=== PATIENT | female | born 1965 | race Caucasian/White ===

== ENCOUNTER 2021-10-11 07:43 | Day surgery (SDC) | payer BC ==
[2021-10-07 14:51] VITALS: BMI 51.2
--- NOTE | 2021-10-11 07:11 | P.GSHP ---
History of Present Illness H&P Date: 10/11/21 CHIEF COMPLAINT: GERD HISTORY OF PRESENT ILLNESS: The patient is a 56-year-old female who presents reports gastroesophageal reflux disease. Upper endoscopy was offered for further evaluation and management. PAST MEDICAL HISTORY: Please see list. PAST SURGICAL HISTORY: Please see list. MEDICATIONS: Please see list. ALLERGIES: Please see list. SOCIAL HISTORY: No illicit drug use FAMILY HISTORY: No reports of Crohn disease or ulcerative colitis. REVIEW OF ORGAN SYSTEMS: CONSTITUTIONAL: No reports of fevers or chills. GI: Denies any blood in stools or constipation. PHYSICAL EXAM: VITAL SIGNS: Stable GENERAL: Well-developed and pleasant in no acute distress. HEENT: No scleral icterus. Extraocular movements grossly intact. Moist buccal mucosa. NECK: Supple without lymphadenopathy. CHEST: Unlabored respirations. Equal bilateral excursions. CARDIOVASCULAR: Regular rate and rhythm. Distal 2+ pulses. ABDOMEN: Soft, nondistended. MUSCULOSKELETAL: No clubbing, cyanosis, or edema. ASSESSMENT: 1. Gastroesophageal reflux disease PLAN: 1. Recommend proceeding with an upper endoscopy Past Medical History Past Medical History: Atrial Fibrillation, Diabetes Mellitus, Osteoarthritis (OA) Additional Past Medical History / Comment(s): Oct 2020 - blood clot in heart. History of Any Multi-Drug Resistant Organisms: None Reported Past Surgical History: Appendectomy, Breast Surgery, Cholecystectomy, Heart Catheterization, Hysterectomy Additional Past Surgical History / Comment(s): lump removed from right breast. Past Anesthesia/Blood Transfusion Reactions: No Reported Reaction Additional Past Anesthesia/Blood Transfusion Reaction / Comment(s): ponv x1 in her 20's Past Psychological History: No Psychological Hx Reported Smoking Status: Former smoker Past Alcohol Use History: None Reported Additional Past Alcohol Use History / Comment(s): quit smoking 2018. , hx of 1 11/07 ppd, started smoking age 17. Past Drug Use History: None Reported Medications and Allergies Home Medications Medication Instructions Recorded Confirmed Type Insulin Aspart [NovoLOG Flexpen] 0 units SQ AC-TID PRN 08/18/21 10/07/21 History Insulin Glargine,Hum.rec.anlog 25 unit SQ QAM 08/18/21 10/07/21 History [Lantus Solostar Pen] Insulin Glargine,Hum.rec.anlog 50 unit SQ HS 08/18/21 10/07/21 History [Lantus Solostar Pen] Meloxicam [Mobic] 15 mg PO DAILY PRN 08/18/21 10/07/21 History Propranolol HCl [Inderal Xl] 80 mg PO HS 08/18/21 10/07/21 History Angeli 1 tab PO DAILY PRN 10/07/21 History Krill Oil 1 tab PO DAILY 10/07/21 History Vitamin C 1 tab PO DAILY 10/07/21 10/07/21 History Vitamin D 3 1 dose PO DIRECTED 10/07/21 History Zinc 1 tab PO DAILY 10/07/21 History Allergies Allergy/AdvReac Type Severity Reaction Status Date / Time codeine Allergy Rash/Hives Verified 10/07/21 14:26 Penicillins Allergy Rash/Hives Verified 10/07/21 14:26 ekg stickers Allergy Unknown red rash Uncoded 10/07/21 15:58
[~2021-10-11 07:43] MED LIST: LACTATED RINGERS 1,000 ML IV SCH
[2021-10-11 08:21] LABS: Glucose,Whole Blood 209 mg/dL (75-99)
[2021-10-11] MEDS ORDERED: LACTATED RINGERS 1,000 ML IV ONE (08:22)
[2021-10-11 08:24] VITALS: TEMP 97.8
[2021-10-11] MEDS ORDERED: .fentaNYL (PF) 50 MCG/ML 2 ML AMP ONE (08:33)
[2021-10-11] MEDS ORDERED: PROPOFOL 10 MG/ML 20 ML VIAL IV ONE (08:33)
[2021-10-11] MEDS ORDERED: LIDOCAINE 1% INJ 10MG/ML (20 ML MDV) ONE (08:33)
--- NOTE | 2021-10-11 08:58 | P.PCN ---
Date of Procedure: 10/11/21 Description of Procedure: PREOPERATIVE DIAGNOSIS: Gastroesophageal reflux disease. Morbid obesity. POSTOPERATIVE DIAGNOSIS: Morbid obesity. Gastritis. Gastroesophageal reflux disease with esophageal ulcer OPERATION: Esophagogastroduodenoscopy with biopsies along antrum and duodenum. SURGEON: Louisa Irwin MD ANESTHESIA: MAC. INDICATIONS: The patient is a 56-year-old female who presents with a history of reflux disease. Benefits and risks of the procedure were described. Informed consent was obtained. DESCRIPTION: The patient was brought into the endoscopy suite and laid in the left lateral decubitus position. An Olympus gastroscope was passed along the posterior oropharynx down to the distal esophagus where the squamocolumnar junction was encountered at 36 cm from the incisors. The stomach was entered and no bile reflux was found. Additional findings are listed below. Biopsies with cold forceps were obtained of the antrum. The first through third portion of the duodenum was examined with cold forceps biopsies obtained. Retroflexion of the scope confirmed Hill grade 2 lower esophageal valve. The squamocolumnar junction demonstrated LA grade A erosive esophagitis and esophageal ulcer. The stomach was desufflated. The patient tolerated the procedure well. FINDINGS: Squamocolumnar junction 36 cm from the incisors. Diaphragmatic hiatus at 36 cm. Hill grade 2 lower esophageal valve. LA grade B erosive esophagitis. Cold forceps biopsies of duodenum. Chronic gastritis with recent bleed RECOMMENDATIONS: Upper endoscopy as needed. Plan - Discharge Summary New Discharge Prescriptions: Continue Insulin Glargine,Hum.rec.anlog [Lantus Solostar Pen] 50 unit SQ HS Insulin Glargine,Hum.rec.anlog [Lantus Solostar Pen] 25 unit SQ QAM Meloxicam [Mobic] 15 mg PO DAILY PRN PRN Reason: Pain Insulin Aspart [NovoLOG Flexpen] 0 units SQ AC-TID PRN PRN Reason: CBG ABOVE 150 Zinc 1 tab PO DAILY Vitamin D 3 1 dose PO DIRECTED Propranolol HCl [Inderal Xl] 80 mg PO HS Vitamin C 1 tab PO DAILY Krill Oil 1 tab PO DAILY Angeli 1 tab PO DAILY PRN PRN Reason: Allergy Symptoms Discharge Medication List Insulin Aspart [NovoLOG Flexpen] 0 units SQ AC-TID PRN 08/18/21 [History] Insulin Glargine,Hum.rec.anlog [Lantus Solostar Pen] 25 unit SQ QAM 08/18/21 [History] Insulin Glargine,Hum.rec.anlog [Lantus Solostar Pen] 50 unit SQ HS 08/18/21 [History] Meloxicam [Mobic] 15 mg PO DAILY PRN 08/18/21 [History] Propranolol HCl [Inderal Xl] 80 mg PO HS 08/18/21 [History] Angeli 1 tab PO DAILY PRN 10/07/21 [History] Krill Oil 1 tab PO DAILY 10/07/21 [History] Vitamin C 1 tab PO DAILY 10/07/21 [History] Vitamin D 3 1 dose PO DIRECTED 10/07/21 [History] Zinc 1 tab PO DAILY 10/07/21 [History] [facility] [facility] [place] [place] [facility] [place] [facility] Patient Instructions/Handouts: Gastroesophageal Reflux Disease (DC) Discharge Disposition: HOME SELF-CARE
[2021-10-11 09:11] VITALS: BP 128/81; PULSE 71; RESP 17
== END 2021-10-11 10:03 | disposition home or self-care (01) ==
LOC: ORWHC2ENDO 07:43
PROVIDERS: ATTEND Surgery Plastic and Reconstructive Surgery
DX: K21.9 Gastro-esophageal reflux disease without esophagitis (principal); E66.01 Morbid (severe) obesity due to excess calories; K29.70 Gastritis, unspecified, without bleeding; K22.10 Ulcer of esophagus without bleeding; I48.91 Unspecified atrial fibrillation; E11.9 Type 2 diabetes mellitus without complications; M19.90 Unspecified osteoarthritis, unspecified site
CPT/HCPCS: 43239; J2001; J3010; J2704; 88305; 88342

== ENCOUNTER → 2021-10-27 | Outpatient (CLI) | payer BC ==
[2021-10-27 15:11] VITALS: BP 146/79; PULSE 80; RESP 16; TEMP 97.6; BMI 50.9
--- NOTE | 2021-10-27 15:47 | P.BASOAP ---
Subjective Progress Note Date: 10/27/21 She has gained weight with BMI over 50. She wants the sleeve gastrectomy. Needs full labs. EKG reviewed. EGD reviewed. Objective - Vital Signs Vital signs: Vital Signs Temp 97.6 F 10/27/21 15:09 Pulse 80 10/27/21 15:09 Resp 16 10/27/21 15:09 BP 146/79 10/27/21 15:09 Pulse Ox Intake & Output 10/26/21 10/27/21 10/27/21 18:59 06:59 18:59 Weight 124.284 kg Assessment/Plan Plan: Date: 10/27/21 Initial Weight: 118.841 kg Initial BMI: 48.6 Current Weight: 124.284 kg Current BMI: 50.9 Type of Surgery: Total Volume in Band: Previous Volume: Volume Removed: Volume Added: Band Size:
[2021-10-27 16:59] LABS: HCT 40.2 % (34.0-46.0); HGB 13.2 gm/dL (11.4-16.0); MCH 29.9 pg (25.0-35.0); MCHC 32.9 g/dL (31.0-37.0); MCV 90.9 fL (80.0-100.0); Mean Platelet Volume 7.5; Platelet Count 311 k/uL (150-450); RBC 4.42 m/uL (3.80-5.40); RDW 13.8 % (11.5-15.5); WBC 7.1 k/uL (3.8-10.6)
[2021-10-27 17:11] LABS: INR 0.9 (<1.2); Partial Thromboplastin Time 22.9 sec (22.0-30.0); Prothrombin Time 9.6 sec (9.0-12.0)
[2021-10-28 01:37] LABS: ALT 19 U/L (8-44); AST 20 U/L (13-35); African American GFR (CKD) 83.3 (60.0-200.0); Albumin/Globulin Ratio 1.68 (1.60-3.17); Alkaline Phosphatase 86 U/L (41-126); BUN/Creat Ratio 13.65 Ratio (12.00-20.00); Blood Urea Nitrogen 12.3 mg/dL (9.0-27.0); Chloride 106 mmol/L (96-109); Globulin 2.4 g/dL (1.6-3.3); Glucose 151 mg/dL (70-110); Magnesium 1.8 mg/dL (1.5-2.4); Non-African American GFR(CKD) 71.9 (60.0-200.0); Phosphorus 3.3 mg/dL (2.4-5.1); Potassium 4.5 mmol/L (3.5-5.5); Prealbumin 20.9 mg/dL (18.0-42.0); Sodium 141 mmol/L (135-145); Total Bilirubin <0.20 mg/dL (0.30-1.20); Total Protein 6.3 g/dL (6.2-8.2)
[2021-10-28 01:38] LABS: % Iron Saturation 18.65 (12.00-45.00); Iron 62 ug/dL (50-170); Total Iron Binding Capacity 335 ug/dL (228-460)
[2021-10-28 01:56] LABS: Chol/HDL Ratio 4.75 Ratio
[2021-10-28 12:57] LABS: Zinc, Serum 70 ug/dL (60-130)
[2021-10-30 02:40] LABS: Vitamin A 38 ug/dL (38-106)
[2021-10-30 02:47] LABS: Vit B1(Thiamine) 69 ug/L (38-122)
== END | disposition home or self-care (01) ==
LOC: BARWHC3 14:08
PROVIDERS: ATTEND Surgery Plastic and Reconstructive Surgery
DX: E89.1 Postprocedural hypoinsulinemia (principal); D50.8 Other iron deficiency anemias; E44.0 Moderate protein-calorie malnutrition; E55.9 Vitamin D deficiency, unspecified; K74.1 Hepatic sclerosis; N19 Unspecified kidney failure; K50.90 Crohn's disease, unspecified, without complications
CPT/HCPCS: 80053; 80061; 82306; 82525; 82607; 82728; 82746; 83036; 83540; 83550; 83721; 83735; 83970; 84100; 84134; 84255; 84425; 84443; 84590; 84630; 85027; 85610; 85730; 99211

== ENCOUNTER → 2021-11-08 | Outpatient (CLI) | payer BC ==
[2021-11-08 13:54] VITALS: BMI 51.2
== END ==
LOC: BARWHC3 08:33
PROVIDERS: ATTEND Surgery Plastic and Reconstructive Surgery
DX: E66.01 Morbid (severe) obesity due to excess calories (principal); Z71.3 Dietary counseling and surveillance; Z68.43 Body mass index [BMI] 50.0-59.9, adult; Z88.5 Allergy status to narcotic agent; Z88.0 Allergy status to penicillin; Z91.048 Other nonmedicinal substance allergy status
CPT/HCPCS: 97804

== ENCOUNTER → 2021-12-29 | Outpatient (CLI) | payer BC ==
[2021-12-29 14:52] VITALS: BP 127/94; PULSE 74; RESP 16; TEMP 98.3; BMI 49.4
--- NOTE | 2021-12-29 15:32 | P.BASOAP ---
Subjective Progress Note Date: 12/29/21 DATE OF SERVICE: 12/29/2021 CHIEF COMPLAINT: Morbid obesity HISTORY OF PRESENT ILLNESS: Selma Castro is a 56-year-old female who comes with lifelong morbid obesity. She diabetes type II and osteoarthritis. She has completed medical supervised weight loss, psychology assessment. She is looking into the sleeve gastrectomy. At height of 5 feet 1.5 inches, her ideal body weight is 131 pounds. Her initial weight was 261 pounds, BMI 48.6. She comes in 265 pounds from 273 pounds, 2 months ago. She has lost 8 pounds in 2 months. Her body mass index is 49.4. She is 134 pounds overweight. PAST MEDICAL HISTORY: 1. Morbid obesity due to excess calories 2. Body mass index of 48.7 3. Diabetes type 2, insulin dependent 4. Hypertension 5. Atrial fibrillation 6. Osteoarthritis lower back 7. Osteoarthritis knees, bilateral 8. Osteoarthritis ankle, left 9. Deep venous thrombosis PAST SURGICAL HISTORY: 1. Cholecystectomy 2. Appendectomy 3. Cardiac catheterization 4. Hysterectomy 5. Right lumpectomy HOME MEDICATIONS: Home Medications Medication Instructions Recorded Confirmed Insulin Aspart [NovoLOG Flexpen] 0 units SQ AC-TID PRN 08/18/21 12/30/21 Insulin Glargine,Hum.rec.anlog 25 unit SQ QAM 08/18/21 12/30/21 [Lantus Solostar Pen] Insulin Glargine,Hum.rec.anlog 50 unit SQ HS 08/18/21 12/30/21 [Lantus Solostar Pen] Meloxicam [Mobic] 15 mg PO DAILY PRN 08/18/21 12/30/21 Propranolol HCl [Inderal Xl] 80 mg PO HS 08/18/21 12/30/21 Angeli 1 tab PO DAILY PRN 10/07/21 12/30/21 Krill Oil 1 tab PO DAILY 10/07/21 12/30/21 Vitamin C 1 tab PO DAILY 10/07/21 12/30/21 Vitamin D 3 1 dose PO DIRECTED 10/07/21 12/30/21 Zinc 1 tab PO DAILY 10/07/21 12/30/21 ALLERGIES: Allergies Allergy/AdvReac Type Severity Reaction Status Date / Time codeine Allergy Rash/Hives Verified 10/27/21 16:37 Penicillins Allergy Rash/Hives Verified 10/27/21 16:37 ekg stickers Allergy Unknown red rash Uncoded 10/27/21 16:37 SOCIAL HISTORY: Past tobacco use. FAMILY HISTORY: No family history of ulcerative colitis disease or Crohn's disease. Family history of morbid obesity. No lupus in the family. No reports of stomach or esophageal cancer. REVIEW OF ORGAN SYSTEMS: CONSTITUTIONAL: At height of 5 feet 1.5 inches, her ideal body weight is 131 pounds. She comes in 261 pounds. Her body mass index is 48.7. She is 130 pounds overweight. HEENT: Denies any active troubles with vision or hearing. ENDOCRINE: Has diabetes type II, insulin dependent. No hypothyroidism. CARDIOVASCULAR: Past reports of palpitations or heart attacks or chest pain. Has hypertensive heart disease. RESPIRATORY: Denies asthma. Denies chronic obstructive pulmonary disease. GASTROINTESTINAL: Denies any bright red blood per rectum. No diarrhea. No constipation. Has gastroesophageal reflux disease. GENITOURINARY: Denies bladder urgency. No recent blood in urine MUSCULOSKELETAL: Has lower back pain and joint pain. Has osteoarthritis of the knees. H NEURO: No headaches. No seizure disorders. Has neuropathy. PSYCH: No depression. No suicidal ideation. RHEUMATOLOGIC: No lupus. No rheumatoid arthritis. HEMATOLOGIC: Denies any abnormal bleeding or bruising. Past history of blood clot in the heart. SKIN: No rash. No skin cancer. PHYSICAL EXAM: VITAL SIGNS: Height 5 foot 1.5 inches, weight 273 pounds. BMI 50.9 Vital Signs Temp 98.3 F 12/29/21 14:50 Pulse 74 12/29/21 14:50 Resp 16 12/29/21 14:50 BP 127/94 12/29/21 14:50 Pulse Ox GENERAL: Well-developed in no acute distress. HEENT: No scleral icterus. Extraocular movements grossly intact. Hears conversational speech. No nasal drainage. NECK: Supple without lymphadenopathy. CHEST: Nonlabored respirations with equal bilateral excursions. CARDIOVASCULAR: Irregular rate and rhythm. Distal 2+ pulses. ABDOMEN: Obese, soft, nontender, nondistended. MUSCULOSKELETAL: No clubbing, cyanosis. NEURO: No focal or lateralizing signs. Cranial nerves 2 through 12 grossly within normal limits. PSYCH: Appropriate affect. Alert and oriented to person, place and time. SKIN: Good skin turgor. Well perfused. EKG: Reviewed. Sinus bradycardia with sinus arrhythmia. LABS: Hgb A1c 7.2% elevated. Triglycerides elevated 414. Vitamin D low. EGD FINDINGS: Squamocolumnar junction 36 cm from the incisors. Diaphragmatic hiatus at 36 cm. Hill grade 2 lower esophageal valve. LA grade B erosive esophagitis. Cold forceps biopsies of duodenum. Chronic gastritis with recent bleed Final Pathologic Diagnosis A. DUODENUM, BIOPSY: Mild active duodenitis with submucosal Leonidas gland hyperplasia suggestive of peptic disease. B. GASTRIC ANTRUM, BIOPSY: Chronic gastritis with mild activity. Helicobacter pylori immunoperoxidase stain is negative for H. pylori organisms (control appropriate). ASSESSMENT: 1. Morbid obesity due to excess calories 2. Body mass index 50.9 to 49.4 3. Diabetes type 2, insulin dependent 4. Hypertension 5. Atrial fibrillation 6. Osteoarthritis lower back 7. Osteoarthritis knees, bilateral 8. Osteoarthritis ankle, left 9. Hypertriglyceridemia 10. Hypercholesterolemia 11. Vitamin D deficiency 12. Duodenitis PLAN: 1. Bariatric options between a sleeve, band and a Ludwig-en-Y gastric bypass were reviewed in detail. The patient elected for a sleeve gastrectomy. Robotic assisted approach described. 2. The [place] [facility] Data was also reviewed with benefits and risks as described. 3. An 8 page second-generation bariatric consent form was reviewed in detail including potential of bleeding, infection, leaks, adequate weight loss, nutri tional deficiencies which the patient demonstrated understanding of the risks. 4. A 2 week high-protein low caloric 800 kcal diet described to address hepatomegaly. 5. Preoperative labs including complete metabolic panel and CBC with type and screen recommended. 6. DVT prophylaxis per [place] [facility]. 7. Antibiotic prophylaxis. 8. Inpatient hospitalization anticipated for more than 2 nights. 9. All questions and concerns were addressed with the patient. 10. She is at elevated risk for perioperative complications with multiple co- morbid conditions. 11. Overall, patient has expressed understanding of bariatric care including postoperative diet and commitment of lifestyle. Patient should benefit from surgical intervention for correction of her morbid obesity. 12. NSQIP surgery risk calculator reviewed. 13. Importance of a protein diet and goal of at least 15 pound weight loss described. 14. Preoperative including perioperative recovery described. 15. IV fluids including oral hydration addressed. 16. Vitamin D deficiency identified and supplemented. Objective - Vital Signs Vital signs: Vital Signs Temp 98.3 F 12/29/21 14:50 Pulse 74 12/29/21 14:50 Resp 16 12/29/21 14:50 BP 127/94 12/29/21 14:50 Pulse Ox Intake & Output 12/28/21 12/29/21 12/29/21 18:59 06:59 18:59 Weight 120.656 kg Assessment/Plan Plan: Date: 12/29/21 Initial Weight: 118.841 kg Initial BMI: 48.6 Current Weight: 120.656 kg Current BMI: 49.4 Type of Surgery: Total Volume in Band: Previous Volume: Volume Removed: Volume Added: Band Size:
== END ==
LOC: BARWHC3 13:54
PROVIDERS: ATTEND Surgery Plastic and Reconstructive Surgery
DX: E66.01 Morbid (severe) obesity due to excess calories (principal); Z68.42 Body mass index [BMI] 45.0-49.9, adult; E11.9 Type 2 diabetes mellitus without complications; I10 Essential (primary) hypertension; I48.91 Unspecified atrial fibrillation; M47.9 Spondylosis, unspecified; M17.0 Bilateral primary osteoarthritis of knee; E78.1 Pure hyperglyceridemia; E78.00 Pure hypercholesterolemia, unspecified; E55.9 Vitamin D deficiency, unspecified; K29.80 Duodenitis without bleeding; Z79.4 Long term (current) use of insulin; Z88.5 Allergy status to narcotic agent; Z88.0 Allergy status to penicillin; Z91.048 Other nonmedicinal substance allergy status; Z87.891 Personal history of nicotine dependence
CPT/HCPCS: 99211

== ENCOUNTER 2022-01-17 08:18 | Observation (INO) | payer BC ==
[~2022-01-17 08:18] MED LIST changes: +ACETAMINOPHEN TAB 500 MG TAB PO PRN; +CHLORHEXIDINE GLUCONATE 15 ML CUP MUCOUS MEM PRN; +DEXAMETHASONE SOD PHOSPHATE 4 MG/ML 1 ML VIAL IV ONE; +ENOXAPARIN 40 MG/0.4 ML SYRINGE SQ PRN; +GABAPENTIN 300 MG CAP PO PRN; -LACTATED RINGERS 1,000 ML IV SCH; +LIDOCAINE 1% (10MG/ML) FOR IV START INTRADERMA PRN; +ONDANSETRON 4 MG/2 ML VIAL IVP ONE; +PANTOPRAZOLE 40 MG/10 ML VIAL IVP PRN; +SCOPOLAMINE 1.5MG/72HR PATCH TRANSDERM ONE; +SCOPOLAMINE 1.5MG/72HR PATCH TRANSDERM PRN; +ceFAZolin 3 GM in SODIUM CHLORIDE 0.9% 100 ML IVPB PRN
--- NOTE | 2022-01-17 08:50 | P.GSHP ---
History of Present Illness H&P Date: 01/17/22 CHIEF COMPLAINT: Morbid obesity HISTORY OF PRESENT ILLNESS: Selma Castro is a 56-year-old female who comes with lifelong morbid obesity. She has insulin resistance. She has lower back pain, right greater than left, knee pain, ankle including of the left. She is completely medically supervised weight loss. She presents for sleeve gastrectomy. At height of 5 feet 1.5 inches, her ideal body weight is 131 pounds. She comes in 270 pounds. Her body mass index is 50.4. She is 130 pounds overweight. PAST MEDICAL HISTORY: 1. Morbid obesity due to excess calories 2. Body mass index of 48.7 3. Diabetes type 2, insulin dependent 4. Hypertension 5. Atrial fibrillation 6. Osteoarthritis lower back 7. Osteoarthritis knees, bilateral 8. Osteoarthritis ankle, left PAST SURGICAL HISTORY: 1. Cholecystectomy 2. Appendectomy 3. Cardiac catheterization 4. Hysterectomy 5. Right lumpectomy HOME MEDICATIONS: Home Medications Medication Instructions Recorded Confirmed Insulin Aspart [NovoLOG Flexpen] 0 units SQ AC-TID PRN 08/18/21 12/30/21 Insulin Glargine,Hum.rec.anlog 25 unit SQ QAM 08/18/21 12/30/21 [Lantus Solostar Pen] Insulin Glargine,Hum.rec.anlog 50 unit SQ HS 08/18/21 12/30/21 [Lantus Solostar Pen] Meloxicam [Mobic] 15 mg PO DAILY PRN 08/18/21 12/30/21 Propranolol HCl [Inderal Xl] 80 mg PO HS 08/18/21 12/30/21 Angeli 1 tab PO DAILY PRN 10/07/21 12/30/21 Krill Oil 1 tab PO DAILY 10/07/21 12/30/21 Vitamin C 1 tab PO DAILY 10/07/21 12/30/21 Vitamin D 3 1 dose PO DIRECTED 10/07/21 12/30/21 Zinc 1 tab PO DAILY 10/07/21 12/30/21 ALLERGIES: Allergies Allergy/AdvReac Type Severity Reaction Status Date / Time codeine Allergy Rash/Hives Verified 10/27/21 16:37 Penicillins Allergy Rash/Hives Verified 10/27/21 16:37 ekg stickers Allergy Unknown red rash Uncoded 10/27/21 16:37 SOCIAL HISTORY: Past tobacco use. FAMILY HISTORY: No family history of ulcerative colitis disease or Crohn's disease. Family history of morbid obesity. No lupus in the family. No reports of stomach or esophageal cancer. REVIEW OF ORGAN SYSTEMS: CONSTITUTIONAL: At height of 5 feet 1.5 inches, her ideal body weight is 131 pounds. She comes in 261 pounds. Her body mass index is 48.7. She is 130 pounds overweight. HEENT: Denies any active troubles with vision or hearing. ENDOCRINE: Has diabetes type II, insulin dependent. No hypothyroidism. CARDIOVASCULAR: Past reports of palpitations or heart attacks or chest pain. Has hypertensive heart disease. RESPIRATORY: Denies asthma. Denies chronic obstructive pulmonary disease. GASTROINTESTINAL: Denies any bright red blood per rectum. No diarrhea. No constipation. Has gastroesophageal reflux disease. GENITOURINARY: Denies bladder urgency. No recent blood in urine MUSCULOSKELETAL: Has lower back pain and joint pain. Has osteoarthritis of the knees. H NEURO: No headaches. No seizure disorders. Has neuropathy. PSYCH: No depression. No suicidal ideation. RHEUMATOLOGIC: No lupus. No rheumatoid arthritis. HEMATOLOGIC: Denies any abnormal bleeding or bruising. Past history of blood clot in the heart. SKIN: No rash. No skin cancer. PHYSICAL EXAM: VITAL SIGNS: Height 5 foot 1.5 inches, weight 270 pounds. BMI 50.4 GENERAL: Well-developed in no acute distress. HEENT: No scleral icterus. Extraocular movements grossly intact. Hears conversational speech. No nasal drainage. NECK: Supple without lymphadenopathy. CHEST: Nonlabored respirations with equal bilateral excursions. CARDIOVASCULAR: Irregular rate and rhythm. Distal 2+ pulses. ABDOMEN: Obese, soft, nontender, nondistended. MUSCULOSKELETAL: No clubbing, cyanosis. NEURO: No focal or lateralizing signs. Cranial nerves 2 through 12 grossly within normal limits. PSYCH: Appropriate affect. Alert and oriented to person, place and time. SKIN: Good skin turgor. Well perfused. ASSESSMENT: 1. Morbid obesity due to excess calories 2. Body mass index of 38.0, initial 3. Osteoarthritis of the knees. 4. Osteoarthritis of the lower back. 5. Hypertensive heart disease. 6. Gastroesophageal reflux disease 7. Hyperlipidemia 8. Obstructive sleep apnea 9. Diabetes type 2, insulin dependent 10. Chronic obstructive pulmonary disease 11. Glaucoma 12. Neuropathy 13. Asthma 14. Atrial fibrillation PLAN: 1. Bariatric options between a sleeve, band and a Ludwig-en-Y gastric bypass were reviewed in detail. The patient elected for a sleeve gastrectomy. Robotic assisted approach described. 2. The [place] [facility] Data was also reviewed with benefits and risks as described. 3. An 8 page second-generation bariatric consent form was reviewed in detail including potential of bleeding, infection, leaks, adequate weight loss, nutritional deficiencies which the patient demonstrated understanding of the risks. 4. A 2 week high-protein low caloric 800 kcal diet described to address hepatomegaly. 5. Preoperative labs including complete metabolic panel and CBC with type and screen recommended. 6. DVT prophylaxis per [place] [facility]. 7. Antibiotic prophylaxis. 8. Inpatient hospitalization anticipated for more than 2 nights. 9. All questions and concerns were addressed with the patient. 10. She is at elevated risk for perioperative complications with BMI of 50 Past Medical History Past Medical History: Atrial Fibrillation, Diabetes Mellitus, Osteoarthritis (OA) Additional Past Medical History / Comment(s): Oct 2020 - blood clot in heart., past hx. a-fib several yrs. ago-takes propranolol for heart rate & rhythm, recent stress test normal @[facility] card[facility]in [place] per pt History of Any Multi-Drug Resistant Organisms: None Reported Past Surgical History: Appendectomy, Breast Surgery, Cholecystectomy, Heart Catheterization, Hysterectomy Additional Past Surgical History / Comment(s): lump removed from right breast. Past Anesthesia/Blood Transfusion Reactions: No Reported Reaction Additional Past Anesthesia/Blood Transfusion Reaction / Comment(s): ponv x1 in her 20's Smoking Status: Former smoker Medications and Allergies Home Medications Medication Instructions Recorded Confirmed Type Insulin Aspart [NovoLOG Flexpen] See Protocol SQ AC-TID PRN 08/18/21 01/17/22 History Insulin Glargine,Hum.rec.anlog 25 unit SQ HS 08/18/21 01/17/22 History [Lantus Solostar Pen] Meloxicam [Mobic] 15 mg PO DAILY PRN 08/18/21 01/13/22 History Propranolol HCl [Inderal Xl] 80 mg PO HS 08/18/21 01/17/22 History Allergies Allergy/AdvReac Type Severity Reaction Status Date / Time codeine Allergy Rash/Hives Verified 01/17/22 08:41 Penicillins Allergy Rash/Hives Verified 01/17/22 08:41 ekg stickers Allergy Unknown red rash Uncoded 01/17/22 08:41
[2022-01-17] MEDS: LACTATED RINGERS 1,000 ML IV SCH (09:10)
[2022-01-17 09:15] LABS: Glucose,Whole Blood 155 mg/dL (75-99)
[2022-01-17] MEDS ORDERED: MELOXICAM 7.5 MG TAB PO ONE (09:17)
[2022-01-17] MEDS ORDERED: diphenhydrAMINE 50 MG/ML 1 ML VIAL ONE (09:24)
[2022-01-17] MEDS ORDERED: LIDOCAINE 1% INJ 10MG/ML (20 ML MDV) ONE (09:24)
[2022-01-17] MEDS ORDERED: ePHEDrine 50 MG/ML 1 ML VIAL ONE (09:24)
[2022-01-17] MEDS ORDERED: PROPOFOL 10 MG/ML 20 ML VIAL IV ONE (09:24)
[2022-01-17] MEDS ORDERED: NEOSTIGMINE 1 MG/ML 10 ML VIAL ONE (09:24)
[2022-01-17] MEDS ORDERED: DEXAMETHASONE SOD PHOSPHATE 10 MG/ML 1 ML VIAL ONE (09:24)
[2022-01-17] MEDS ORDERED: MIDAZOLAM 2 MG/2 ML VIAL ONE (09:24)
[2022-01-17] MEDS ORDERED: SUCCINYLCHOLINE CHLORIDE VIAL 200 MG/10 ML VIAL IV ONE (09:24)
[2022-01-17] MEDS ORDERED: fentaNYL (PF) 50 MCG/ML 2 ML AMP ONE (09:24)
[2022-01-17] MEDS ORDERED: GLYCOPYRROLATE 0.2 MG/ML 2 ML VIAL ONE (09:24)
[2022-01-17] MEDS ORDERED: ROCURONIUM 10 MG/ML (5 ML VIAL) IV ONE (09:24)
[2022-01-17 09:39] LABS: ALT 29 U/L (4-34); AST 29 U/L (14-36); African American GFR (CKD) >90 (>60 ml/min/1.73 sqM); Albumin 4.1 g/dL (3.5-5.0); Alkaline Phosphatase 79 U/L (38-126); Anion Gap 8 mmol/L; Blood Urea Nitrogen 11 mg/dL (7-17); Carbon Dioxide 21 mmol/L (22-30); Chloride 109 mmol/L (98-107); Glucose 166 mg/dL (74-99); Non-African American GFR(CKD) >90 (>60 ml/min/1.73 sqM); Potassium 4.4 mmol/L (3.5-5.1); Sodium 138 mmol/L (137-145); Total Bilirubin 0.8 mg/dL (0.2-1.3); Total Protein 7.2 g/dL (6.3-8.2)
[2022-01-17] MEDS ORDERED: BUPIVACAIN-EPI 0.25%-1:200,000 30 ML VIAL SQ ONE (10:14)
[2022-01-17] MEDS ORDERED: LACTATED RINGERS 1,000 ML IV ONE (11:02)
[2022-01-17] MEDS ORDERED: NALOXONE 0.4 MG/ML 1 ML VIAL IV PRN (11:24)
--- NOTE | 2022-01-17 11:39 | P.OP ---
Date of Procedure: 01/17/22 Description of Procedure: SURGEON: KERRIE SHELDON MD PREOPERATIVE DIAGNOSES: 1. Morbid obesity due to excess calories 2. Body mass index of 50.2 3. Diabetes type 2, insulin dependent 4. Hypertension 5. Atrial fibrillation 6. Osteoarthritis lower back 7. Osteoarthritis knees, bilateral 8. Osteoarthritis ankle, left POSTOPERATIVE DIAGNOSES: 1. Morbid obesity due to excess calories 2. Body mass index of 50.2 3. Diabetes type 2, insulin dependent 4. Hypertension 5. Atrial fibrillation 6. Osteoarthritis lower back 7. Osteoarthritis knees, bilateral 8. Osteoarthritis ankle, left 9. Fatty liver disease with hepatomegaly OPERATION: 1. Robotic assisted daVinci Xi laparoscopic sleeve gastrectomy with 40-Cay[place] Islander bougie, multiport. 2. Intraoperative esophagogastroduodenoscopy. ANESTHESIA: Gen. local anesthetic ESTIMATED BLOOD LOSS: 5 mL SPECIMENS REMOVED: Sleeve gastrectomy COMPLICATIONS: None. FINDINGS: 1. Negative intraoperative esophagogastrojejunoscopy leak test. 2. No large hiatus hernia. 3. Total of 6 staplers used including 3 - 60 mm blue robot ely and 3 - 60 mm green robot loads used to create the gastric sleeve. 4. Sleeve gastrectomy, 27 x 3 cm INDICATIONS: Selma Castro is a 56-year-old female who comes with lifelong morbid obesity. She has insulin resistance. She has lower back pain, right greater than left, knee pain, ankle including of the left. She is completely medically supervised weight loss. She presents for sleeve gastrectomy. At height of 5 feet 1.5 inches, her ideal body weight is 131 pounds. She comes in 270 pounds. Her body mass index is 50.4. She is 130 pounds overweight. All surgical options for morbid obesity had been described using the [place] bariatric surgery collaborative comorbidity resolution including complication risk score. A second-generation bariatric consent form was described in detail including the possibility of protein malnutrition, leaks, gastric stricture, venous thrombosis, gastroesophageal reflux disease, need for further surgery for which she demonstrated understanding. Benefits and risks of the procedure were described at length. Informed consent was obtained. DESCRIPTION: The patient was brought into the operating room theater. Preoperatively she had received Lovenox subcutaneously for DVT prophylaxis. Additionally she had Peridex oral solution as an oral decontaminant. After general induction, the abdomen was prepped and draped in standard sterile fashion. An Ioban draping was placed along the abdomen. A robotic da Martin Xi system was prepped and primed. At 15 cm from the xiphoid, proposed port sites were marked with indelible marker along the anterior axillary line bilaterally, mid axillary line bilaterally with each ports were marked 10 to 15 cm from each other. The robotic stapler port was marked for the right midclavicular line. A 5 mm 0 degrees laparoscopic trocar entry was performed along the left upper quadrant. The abdomen was insufflated to 15 mmHg pressure was tolerated well. Diagnostic laparoscopy demonstrated no injury to bowel, viscera, or mesentery. No evidence of large hiatus hernia was identified. The liver was large with hepatomegaly including moderate severe fatty liver disease despite her 2 week low carbohydrate high protein diet. A 8 mm port was placed along the left upper abdominal wall after exchanging the 5 mm port. A separate 8 mm port was placed along the left lateral abdominal wall. Please note that the ports were placed at least 20 cm away from the target anatomy. Care was taken to check each robotic arms were safely away from collision with the bed or the patient. At the epigastrium, a medium sized Kristine liver retractor was placed under direct visualization with the [employer] Partner placed under the right shoulder of the patient. Next, 12-mm robot stapler port was placed along the right upper quadrant. The camera 8-mm port was maintained along the epigastrium. The patient was repositioned in reverse Trendelenburg position at 21-degrees after lowering the bed. The robot was docked along the left side of the patient. Using a grasper for arm 4, a vessel sealer for arm 3, including grasper for arm 1, the robotic system was docked and primed as described. Instruments were interchanged by the real estate legal assistant for stapler loads. The camera was placed at 30- degrees down. I had sat at the console. The pylorus was identified and 6 cm proximally along the greater curvature of the stomach, the short gastrics were mobilized upwards to the angle of His using a vessel sealer. Hemostasis was excellent during this portion of the procedure. Next, the upper pole of the stomach was adherent to the left quang, which was gently dissected free using atraumatic grasper. I went to the head of the bed and placed 40-[place] Islander blunt bougie into the stomach. The bougie was readjusted by the nurse content creation manager. Robotic stapler green load 60 mm 3 followed by green 60 mm x 3 loads were used to create the sleeve. Initial firing was across the antrum of the stomach towards the angle of His. The staple line was linear without corkscrewing. The space from the angularis incisura of the sleeve was approximately 4 cm. I then went to the head of the bed to perform the intraoperative esophagogas troduodenoscopy leak test. The bougie was withdrawn. The upper pole of the stomach was bathed using normal saline solution. The scope was withdrawn with careful inspection along the staple line for which no leaks were found along the entire length. Additionally,the sleeve was completely hemostatic without any encroachment along the angularis incisura. Its topology was a soft "J". No stricture was encountered upon placement of the scope. The GI tract was desufflated. The patient tolerated this portion of the procedure well. The scope was completely withdrawn. The robot was undocked. I then rescrubbed into case, whereby the irrigation fluid was aspirated from the abdominal cavity. Tisseel fibrin sealant was placed along the entire staple length. Once dried the Kristine liver retractor was removed. Attention was now brought to removal of the specimen. The distal end of the sleeve gastrectomy specimen was brought out through the 12 mm port at the left upper quadrant. The specimen was gently removed en total. No contamination had occurred during this process. All instruments and pneumoperitoneum including irrigation fluid was removed from the abdominal cavity. The 12 mm port site was closed using 0-Vicryl and Rudolph Alafro and irrigated with diluted hydrogen peroxide. The final incisions were closed using subcuticular interrupted suture of 4-0 Monocryl. Exofin was applied to the skin once the skin had been cleansed. OptiFoam dressing was placed along the stomach extraction site. The sleeve specimen was measured and checked also for leaks which none were found. At the end of the procedure, needle, sponge, and instrument count was verified correct by the surgical instrument repair specialist. The patient was taken to the postanesthesia care unit in stable condition. She had tolerated the procedure well. Intraoperative films and findings were reviewed with the patient's family.
[2022-01-17 11:42] LABS: Basophils % (A) 0 %; Eosinophils # (A) 0.1 k/uL (0-0.7); Eosinophils % (A) 1 %; HCT 47.1 % (34.0-46.0); HGB 15.2 gm/dL (11.4-16.0); Hypochromasia Slight; Lymphocytes # (A) 1.6 k/uL (1.0-4.8); Lymphocytes % (A) 15 %; MCH 30.2 pg (25.0-35.0); MCHC 32.2 g/dL (31.0-37.0); MCV 93.7 fL (80.0-100.0); Mean Platelet Volume 7.1; Monocytes # (A) 0.3 k/uL (0-1.0); Monocytes % (A) 3 %; Neutrophils # (A) 8.4 k/uL (1.3-7.7); Neutrophils % (A) 79 %; Platelet Count 292 k/uL (150-450); RBC 5.03 m/uL (3.80-5.40); RDW 13.8 % (11.5-15.5); WBC 10.7 k/uL (3.8-10.6)
[2022-01-17] MEDS: fentaNYL (PF) 50 MCG/ML 2 ML AMP IV PRN ×2 (12:11→12:42)
[2022-01-17] MEDS ORDERED: DEXAMETHASONE SOD PHOSPHATE 10 MG/ML 1 ML VIAL IVP ONE (14:00)
[2022-01-17] MEDS ORDERED: SODIUM CHLORIDE 0.9% 1,000 ML IV ONE (15:00)
[2022-01-17] MEDS: 0.9% NACL WITH KCL 20 MEQ/L 1,000 ML IV SCH ×2 (15:13→17:57)
[2022-01-17] MEDS: ACETAMINOPHEN IV (For NPO) 1,000 MG in EMPTY BAG 1 BAG IVPB SCH ×2 (15:17→17:17)
[2022-01-17] MEDS: HYOSCYAMINE ORAL DROPS 1.875 MG/15 ML BOTTLE PO SCH ×2 (15:17→17:24)
[2022-01-17] MEDS: ONDANSETRON 4 MG/2 ML VIAL IVP SCH ×2 (15:18→17:23)
[2022-01-17] MEDS: INSULIN ASPART (NovoLOG) 100 UNIT/ML VIAL SQ SCH ×2 (15:18→17:24)
[2022-01-17] MEDS: SIMETHICONE 40 MG/0.6 ML DROPS 2,000 MG/30 ML BOTTLE PO SCH ×2 (15:18→17:30)
[2022-01-17 16:13] LABS: Glucose,Whole Blood 238 mg/dL (75-99)
[2022-01-17] MEDS: diphenhydrAMINE 50 MG/ML 1 ML VIAL IVP PRN (16:47)
[2022-01-17] MEDS: ALBUTEROL NEBULIZED 2.5 MG/3 ML INHALATION SCH ×3 (16:48→20:39)
[2022-01-17] MEDS: HYDROmorphone 1 MG/ML 1 ML SYRINGE IVP PRN (16:48)
[2022-01-17] MEDS: DEXAMETHASONE SOD PHOSPHATE 4 MG/ML 1 ML VIAL IVP SCH (17:23)
[2022-01-17] MEDS ORDERED: PROPRANOLOL LA 80 MG CAP.SA.24H PO SCH (21:00)
[2022-01-17] MEDS ORDERED: INSULIN DETEMIR (LEVEMIR) 100 UNIT/ML SYR SQ SCH (21:00)
[2022-01-17] MEDS: PANTOPRAZOLE 40 MG/10 ML VIAL IV SCH (21:14)
[2022-01-18 00:04] LABS: Glucose,Whole Blood 184 mg/dL (75-99)
[2022-01-18] MEDS: ACETAMINOPHEN IV (For NPO) 1,000 MG in EMPTY BAG 1 BAG IVPB SCH ×2 (00:08→05:34)
[2022-01-18] MEDS: HYOSCYAMINE ORAL DROPS 1.875 MG/15 ML BOTTLE PO SCH ×4 (00:09→17:09)
[2022-01-18] MEDS: INSULIN ASPART (NovoLOG) 100 UNIT/ML VIAL SQ SCH ×4 (00:10→17:08)
[2022-01-18] MEDS: SIMETHICONE 40 MG/0.6 ML DROPS 2,000 MG/30 ML BOTTLE PO SCH ×4 (00:10→17:09)
[2022-01-18] MEDS: DEXAMETHASONE SOD PHOSPHATE 4 MG/ML 1 ML VIAL IVP SCH ×4 (00:11→17:08)
[2022-01-18] MEDS: ONDANSETRON 4 MG/2 ML VIAL IVP SCH ×4 (00:11→17:08)
[2022-01-18] MEDS: HYDROmorphone 1 MG/ML 1 ML SYRINGE IVP PRN ×2 (01:45→08:13)
[2022-01-18] MEDS: diphenhydrAMINE 50 MG/ML 1 ML VIAL IVP PRN (01:45)
[2022-01-18] MEDS: 0.9% NACL WITH KCL 20 MEQ/L 1,000 ML IV SCH ×4 (01:55→15:41)
[2022-01-18] MEDS: LACTATED RINGERS 1,000 ML IV SCH (05:36)
[2022-01-18 05:50] LABS: Glucose,Whole Blood 186 mg/dL (75-99)
[2022-01-18 06:47] LABS: Glucose,Whole Blood 188 mg/dL (75-99)
[2022-01-18 08:01] VITALS: TEMP 97.9
[2022-01-18] MEDS: PANTOPRAZOLE 40 MG/10 ML VIAL IV SCH (08:06)
[2022-01-18] MEDS: ALBUTEROL NEBULIZED 2.5 MG/3 ML INHALATION SCH ×3 (08:13→15:35)
[2022-01-18 08:57] LABS: Basophils # (A) 0.01 X 10*3/uL (0.00-0.10); Basophils % (A) 0.1 %; Eosinophils # (A) 0 X 10*3/uL (0.04-0.35); Eosinophils % (A) 0 %; HCT 40.9 % (37.2-46.3); Immature Grans, Automated 0.4 %; Lymphocytes # (A) 0.95 X 10*3/uL (0.90-5.00); Lymphocytes % (A) 6.6 %; MCH 29.2 pg (27.0-32.0); MCHC 31.8 g/dL (32.0-37.0); MCV 91.9 fL (80.0-97.0); Mean Platelet Volume 10.1 fL (9.5-12.2); Monocytes # (A) 0.27 X 10*3/uL (0.20-1.00); Monocytes % (A) 1.9 %; NRBC Per 100 WBC 0 /100 WBCS (0.0-0.0); Neutrophils # (A) 13.01 X 10*3/uL (1.80-7.70); Platelet Count 294 X 10*3/uL (140-440); RBC 4.45 X 10*6/uL (4.10-5.20); RDW 13.2 % (11.5-14.5)
[2022-01-18 09:00] LABS: Magnesium 1.8 mg/dL (1.5-2.4)
[2022-01-18] MEDS ORDERED: ENOXAPARIN 40 MG/0.4 ML SYRINGE SQ SCH (09:00)
[2022-01-18 09:20] LABS: African American GFR (CKD) 82.2 (60.0-200.0); Anion Gap 16.1 mmol/L (10.00-18.00); Blood Urea Nitrogen 8.8 mg/dL (9.0-27.0); Calcium 8.4 mg/dL (8.7-10.3); Carbon Dioxide 18.6 mmol/L (20.0-27.5); Non-African American GFR(CKD) 70.9 (60.0-200.0); Phosphorus 2.9 mg/dL (2.4-5.1); Potassium 4.9 mmol/L (3.5-5.5)
--- NOTE | 2022-01-18 10:58 | FL ---
SINGLE CONTRAST UPPER GI EXAMINATION: CLINICAL HISTORY: 56-year-old female status post bariatric surgery, postop gastric sleeve. Total fluoroscopy time: 1 minute 26 seconds. Total images: 23. TECHNIQUE: Single contrast exam performed with 50 ml Isovue-370 contrast. FINDINGS: The patient swallowed oral contrast without difficulty or delay. Esophageal peristalsis and motility are within normal limits. There is initial delay in passage of contrast from the esophagus and stoma ch. After eventual passage, subsequent swallows moved more promptly into the proximal stomach. Post s urgical changes of gastrectomy is demonstrated with a mild relative delay in reaching the distal stom ach and passing into the duodenum. There is no evidence of contrast extravasation to suggest leak. No postsurgical free air identified. IMPRESSION: No evidence of leak status post sleeve gastrectomy. Mild relative delay in passage/obstruction likely due to some residual postoperative edema.
[2022-01-18] MEDS: GABAPENTIN 300 MG CAP PO SCH ×2 (10:59→15:46)
[2022-01-18 11:38] LABS: Glucose,Whole Blood 203 mg/dL (75-99)
[2022-01-18 12:34] VITALS: BMI 50.3
[2022-01-18] MEDS ORDERED: MAGNESIUM SULFATE-D5W PMX 1 GM in DEXTROSE/WATER 1 100ML.BAG IVPB ONE (13:22)
[2022-01-18 14:24] VITALS: BP 118/68; PULSE 55; RESP 18
--- NOTE | 2022-01-18 15:16 | P.DS ---
Providers Date of admission: 01/18/22 04:55 Expected date of discharge: 01/18/22 Attending physician: Louisa Irwin Primary care physician: Francisco Javier Mccollum Hospital Course: Discharge diagnosis 1. Morbid obesity due to excess calories 2. Body mass index of 50.2 3. Diabetes type 2, insulin dependent 4. Hypertension 5. Atrial fibrillation 6. Osteoarthritis lower back 7. Osteoarthritis knees, bilateral 8. Osteoarthritis ankle, left 9. Fatty liver disease with hepatomegaly Hospital course Selma Castro is a 56-year-old female who comes with lifelong morbid obesity. She has insulin resistance. She has lower back pain, right greater than left, knee pain, ankle including of the left. She is status post Robotic assisted daVinci Xi laparoscopic sleeve gastrectomy. Patient tolerated surgery well. Her pain is controlled. Her upper GI shows no evidence of leak. There is mild relative delay in passage/obstruction likely due to some residual postoperative edema. Patient is tolerating bariatric clear liquid diet. She has been up and ambulating. Her pain is controlled. She is afebrile. She is stable for discharge. Physician Maritime Officer note has been reviewed by physician. Signing provider agrees with the documented findings, assessment, and plan of care. Patient Condition at Discharge: Stable Plan - Discharge Summary Discharge Rx Participant: Yes New Discharge Prescriptions: New bisacodyL [Dulcolax] 5 mg PO DAILY PRN #10 tab PRN Reason: Constipation Simethicone 40 mg/0.6 ml Drops [Mylicon Drops] 40 mg PO PCHS PRN #30 ml PRN Reason: Gas Omeprazole [PriLOSEC] 40 mg PO DAILY #30 cap Ondansetron Odt [Zofran Odt] 4 mg PO Q8HR PRN #9 tab PRN Reason: Nausea Acetaminophen Tab [Tylenol] 1,000 mg PO Q6HR PRN #30 tablet PRN Reason: Pain Continue Propranolol HCl [Inderal Xl] 80 mg PO HS Discontinued Meloxicam [Mobic] 15 mg PO DAILY PRN PRN Reason: Pain No Action Insulin Glargine,Hum.rec.anlog [Lantus Solostar Pen] 25 unit SQ HS Insulin Aspart [NovoLOG Flexpen] See Protocol SQ AC-TID PRN PRN Reason: CBG ABOVE 150 Discharge Medication List Insulin Aspart [NovoLOG Flexpen] See Protocol SQ AC-TID PRN 08/18/21 [History] Insulin Glargine,Hum.rec.anlog [Lantus Solostar Pen] 25 unit SQ HS 08/18/21 [History] Propranolol HCl [Inderal Xl] 80 mg PO HS 08/18/21 [History] Acetaminophen Tab [Tylenol] 1,000 mg PO Q6HR PRN #30 tablet 01/18/22 [Rx] Omeprazole [PriLOSEC] 40 mg PO DAILY #30 cap 01/18/22 [Rx] Ondansetron Odt [Zofran Odt] 4 mg PO Q8HR PRN #9 tab 01/18/22 [Rx] Simethicone 40 mg/0.6 ml Drops [Mylicon Drops] 40 mg PO PCHS PRN #30 ml 01/18/22 [Rx] bisacodyL [Dulcolax] 5 mg PO DAILY PRN #10 tab 01/18/22 [Rx] [facility] [place] [facility] [place] [facility] Activity/Diet/Wound Care/Special Instructions: Liquid diet only for 2 weeks until 01/31 No lifting over 4 pounds in 4 weeks, 02/14 May Shower. No soaking in bath tubs, until 01/31 Please notify your surgeon if you develop nausea and vomiting including new onset of abdominal pain. Continue to use incentive spirometry to prevent pneumonias. Please continue to ambulate at home to prevent blood clots in legs. Follow-up at the bariatric center. May shower. Dressings to be discontinued by surgeon in the office. Drink 64 oz of fluid daily. Start protein shakes on . Notify bariatric center for temp over 101.0, increased pain, drainage from incisions. No straws or carbonated beverages. Liquid diet only. Sugar content should be less than 6 g to avoid dumping syndrome. Take MOM for constipation. CRUSH, OPEN, OR CUT TABLETS LARGER THAN A SIZE OF A TIC TAC
--- NOTE | 2022-01-18 16:47 | P.PN ---
Progress Note - Text Progress Note Date: 01/18/22 Patient seen and evaluated. She reports she is tolerating liquids. Her expected incisional pain at left upper quadrant is tolerable. Expectations following surgery reviewed including increased daily oral intake of fluids. Caution of blood sugar glucose reviewed including risk of hypoglycemia when blood sugars approach under 150 with insulin. Picture of her sleeve reviewed.
[2022-01-18 16:50] LABS: Glucose,Whole Blood 157 mg/dL (75-99)
== END 2022-01-18 19:32 | disposition home or self-care (01) ==
LOC: OR 08:18 → 4SSUR 11:06 → OR 01-18 04:55
PROVIDERS: ADMIT Surgery Plastic and Reconstructive Surgery; ATTEND Surgery Plastic and Reconstructive Surgery
DX: E66.01 Morbid (severe) obesity due to excess calories (principal); Z68.43 Body mass index [BMI] 50.0-59.9, adult; E11.9 Type 2 diabetes mellitus without complications; I11.9 Hypertensive heart disease without heart failure; I48.91 Unspecified atrial fibrillation; E78.5 Hyperlipidemia, unspecified; M15.9 Polyosteoarthritis, unspecified; G62.9 Polyneuropathy, unspecified; E88.81 Metabolic syndrome and other insulin resistance; K76.0 Fatty (change of) liver, not elsewhere classified; G47.33 Obstructive sleep apnea (adult) (pediatric); K21.9 Gastro-esophageal reflux disease without esophagitis; J44.9 Chronic obstructive pulmonary disease, unspecified; R60.9 Edema, unspecified; H40.9 Unspecified glaucoma; R16.0 Hepatomegaly, not elsewhere classified; Z79.1 Long term (current) use of non-steroidal anti-inflammatories (NSAID); Z79.4 Long term (current) use of insulin; Z88.0 Allergy status to penicillin; Z88.5 Allergy status to narcotic agent; Z90.710 Acquired absence of both cervix and uterus; Z87.891 Personal history of nicotine dependence; Z90.49 Acquired absence of other specified parts of digestive tract
CPT/HCPCS: 43775; 94640 ×3; 94760; 97161; 97165; 86900; 86901; 80051; 80053; 82310; 82565; 83735; 84100; 84520; 85025 ×2; 86850; 88307; 74240; G0378; J2250; J0330; J1200 ×2; J1100 ×3; J2710; J0690 ×2; J2405 ×2; J2001; J1650 ×2; J3010; J1170 ×2; J3475; J0131 ×2; J2704; C9113 ×2; J1790

== ENCOUNTER → 2022-01-21 | Outpatient (CLI) | payer BC ==
[2022-01-21 09:27] VITALS: BP 142/92; PULSE 67; TEMP 98; BMI 47.2
--- NOTE | 2022-03-20 16:54 | P.BASOAP ---
Subjective Progress Note Date: 01/21/22 DATE OF SERVICE: 01/21/2022 CHIEF COMPLAINT: Status post sleeve gastrectomy HISTORY OF PRESENT ILLNESS: Selma Castro is a 56-year-old female who status post sleeve gastrectomy, 01/17/2022. She is POD 4. She denies reflux or abdominal pain. She reports adequate fluid intake. She is taking omeprazole. She is off insulin. Her blood sugars are under 150. At height of 5 feet 1.5 inches, her ideal body weight is 131 pounds. Her initial weight was 261 pounds, BMI 48.6. She comes in 253 pounds from 265 pounds, 1 month ago. She has lost 12 pounds in 1 month. Lifetime weight loss of 12 pounds. Percent lifetime excess weight loss of 9%. Her body mass index is 47.2. She is 122 pounds overweight. PHYSICAL EXAM: VITAL SIGNS: Height 5 foot 1.5 inches, weight 253 pounds. BMI 47.2 Vital Signs Temp 98 F 01/21/22 09:19 Pulse 67 01/21/22 09:19 Resp BP 142/92 01/21/22 09:19 Pulse Ox GENERAL: Well-developed in no acute distress. HEENT: No scleral icterus. Extraocular movements grossly intact. Hears conversational speech. No nasal drainage. NECK: Supple without lymphadenopathy. CHEST: Nonlabored respirations with equal bilateral excursions. CARDIOVASCULAR: IDistal 2+ pulses. ABDOMEN: Obese, soft. Incisions are clean, dry, and intact. Dressings removed. No infection. MUSCULOSKELETAL: No clubbing, cyanosis. NEURO: No focal or lateralizing signs. Cranial nerves 2 through 12 grossly within normal limits. PSYCH: Appropriate affect. Alert and oriented to person, place and time. SKIN: Good skin turgor. Well perfused. Final Pathologic Diagnosis PORTION OF STOMACH, SLEEVE GASTRECTOMY: Benign gastric tissue with minimal chronic inflammation and focal congestion. Morbid obesity clinically. No Helicobacter organisms seen on H+E staining. ASSESSMENT: 1. Morbid obesity due to excess calories 2. Body mass index 50.9 to 47.2 3. Diabetes type 2, insulin dependent 4. Hypertension 5. Atrial fibrillation 6. Osteoarthritis lower back 7. Osteoarthritis knees, bilateral 8. Osteoarthritis ankle, left 9. Hypertriglyceridemia 10. Hypercholesterolemia 11. Vitamin D deficiency 12. Duodenitis 13. Status post sleeve gastrectomy PLAN: 1. Follow up next week. 2. Fluid intake 64 ounces or more advised. 3. Start protein shakes. Objective - Vital Signs Vital signs: Vital Signs Temp 98 F 01/21/22 09:19 Pulse 67 01/21/22 09:19 Resp BP 142/92 01/21/22 09:19 Pulse Ox Assessment/Plan Plan: Date: 01/21/22 Initial Weight: 118.841 kg Initial BMI: 48.6 Current Weight: 115.212 kg Current BMI: 47.2 Type of Surgery: Total Volume in Band: Previous Volume: Volume Removed: Volume Added: Band Size:
== END ==
LOC: BARWHC3 08:58
PROVIDERS: ATTEND Surgery Plastic and Reconstructive Surgery
DX: E66.01 Morbid (severe) obesity due to excess calories (principal); Z68.42 Body mass index [BMI] 45.0-49.9, adult; I10 Essential (primary) hypertension; I48.91 Unspecified atrial fibrillation; M47.9 Spondylosis, unspecified; M17.0 Bilateral primary osteoarthritis of knee; M19.072 Primary osteoarthritis, left ankle and foot; E78.00 Pure hypercholesterolemia, unspecified; E55.9 Vitamin D deficiency, unspecified; Z98.84 Bariatric surgery status; K29.80 Duodenitis without bleeding; Z88.0 Allergy status to penicillin; Z88.1 Allergy status to other antibiotic agents; Z88.5 Allergy status to narcotic agent; Z91.048 Other nonmedicinal substance allergy status
CPT/HCPCS: 99211

== ENCOUNTER → 2022-01-26 | Outpatient (CLI) | payer BC ==
[2022-01-26 15:10] VITALS: BP 121/75; PULSE 71; RESP 16; TEMP 98; BMI 46.6
--- NOTE | 2022-01-26 15:36 | P.BASOAP ---
Subjective Progress Note Date: 01/26/22 DATE OF SERVICE: 01/26/2022 CHIEF COMPLAINT: Status post sleeve gastrectomy HISTORY OF PRESENT ILLNESS: Selma Castro is a 56-year-old female who status post sleeve gastrectomy, 01/17/2022. She is 1 week out. She has pressure of the epigastrium when she swallows. She has lost 15 pounds in 1 month. Protein shakes are once daily. Her protein intake is subpar. At height of 5 feet 1.5 inches, her ideal body weight is 131 pounds. Her initial weight was 261 pounds, BMI 48.6. She comes in 250 pounds from 253 pounds, 1 week ago. She has lost 3 pounds in 1 week. Lifetime weight loss of 11 pounds. Percent lifetime excess weight loss of 8 %. Her body mass index is 46.7. She is 119 pounds overweight. PHYSICAL EXAM: VITAL SIGNS: Height 5 foot 1.5 inches, weight 250 pounds. BMI 46.7 Vital Signs Temp 98 F 01/26/22 15:06 Pulse 71 01/26/22 15:06 Resp 16 01/26/22 15:06 BP 121/75 01/26/22 15:06 Pulse Ox GENERAL: Well-developed in no acute distress. HEENT: No scleral icterus. Extraocular movements grossly intact. Hears conversational speech. No nasal drainage. NECK: Supple without lymphadenopathy. CHEST: Nonlabored respirations with equal bilateral excursions. CARDIOVASCULAR: Regular rate and rhythm. Distal 2+ pulses. ABDOMEN: Incisions intact. No infection. MUSCULOSKELETAL: No clubbing, cyanosis. NEURO: No focal or lateralizing signs. Cranial nerves 2 through 12 grossly within normal limits. PSYCH: Appropriate affect. Alert and oriented to person, place and time. SKIN: Good skin turgor. Well perfused. ASSESSMENT: 1. Morbid obesity due to excess calories 2. Body mass index 50.9 to 46.7 3. Diabetes type 2, insulin dependent 4. Hypertension 5. Atrial fibrillation 6. Osteoarthritis lower back 7. Osteoarthritis knees, bilateral 8. Osteoarthritis ankle, left 9. Hypertriglyceridemia 10. Hypercholesterolemia 11. Vitamin D deficiency 12. Duodenitis 13. Status post sleeve gastrectomy PLAN: 1. Recommend increase protein intake at 75 grams daily. 2. Needs another binder. 3. Follow up 1 month out. Objective - Vital Signs Vital signs: Vital Signs Temp 98 F 01/26/22 15:06 Pulse 71 01/26/22 15:06 Resp 16 01/26/22 15:06 BP 121/75 01/26/22 15:06 Pulse Ox Intake & Output 01/25/22 01/26/22 01/26/22 18:59 06:59 18:59 Weight 113.852 kg Assessment/Plan Plan: Date: 01/26/22 Initial Weight: 118.841 kg Initial BMI: 48.6 Current Weight: 113.852 kg Current BMI: 46.6 Type of Surgery: Total Volume in Band: Previous Volume: Volume Removed: Volume Added: Band Size:
== END ==
LOC: BARWHC3 14:43
PROVIDERS: ATTEND Surgery Plastic and Reconstructive Surgery
DX: E66.01 Morbid (severe) obesity due to excess calories (principal); Z68.42 Body mass index [BMI] 45.0-49.9, adult; E11.9 Type 2 diabetes mellitus without complications; I10 Essential (primary) hypertension; I48.91 Unspecified atrial fibrillation; M47.9 Spondylosis, unspecified; M17.0 Bilateral primary osteoarthritis of knee; E78.1 Pure hyperglyceridemia; E78.00 Pure hypercholesterolemia, unspecified; E55.9 Vitamin D deficiency, unspecified; Z98.84 Bariatric surgery status; K29.80 Duodenitis without bleeding; Z88.0 Allergy status to penicillin; Z88.5 Allergy status to narcotic agent; Z88.1 Allergy status to other antibiotic agents; Z91.048 Other nonmedicinal substance allergy status
CPT/HCPCS: 97802; 99211

== ENCOUNTER → 2022-02-16 | Outpatient (CLI) | payer BC ==
[~2022-02-16] MED LIST changes: -ACETAMINOPHEN TAB 500 MG TAB PO PRN; -CHLORHEXIDINE GLUCONATE 15 ML CUP MUCOUS MEM PRN; +DEXAMETHASONE SOD PHOSPHATE 10 MG/ML 1 ML VIAL IM STA; -DEXAMETHASONE SOD PHOSPHATE 4 MG/ML 1 ML VIAL IV ONE; -ENOXAPARIN 40 MG/0.4 ML SYRINGE SQ PRN; -GABAPENTIN 300 MG CAP PO PRN; -LIDOCAINE 1% (10MG/ML) FOR IV START INTRADERMA PRN; -ONDANSETRON 4 MG/2 ML VIAL IVP ONE; -PANTOPRAZOLE 40 MG/10 ML VIAL IVP PRN; -SCOPOLAMINE 1.5MG/72HR PATCH TRANSDERM ONE; -SCOPOLAMINE 1.5MG/72HR PATCH TRANSDERM PRN; -ceFAZolin 3 GM in SODIUM CHLORIDE 0.9% 100 ML IVPB PRN
[2022-02-16 15:02] VITALS: BP 132/85; PULSE 68; RESP 16; TEMP 98.1; BMI 45.4
--- NOTE | 2022-02-16 15:24 | P.BASOAP ---
Subjective Progress Note Date: 02/16/22 DATE OF SERVICE: 02/16/2022 CHIEF COMPLAINT: Status post sleeve gastrectomy HISTORY OF PRESENT ILLNESS: Selma Castro is a 56-year-old female who status post sleeve gastrectomy, 01/17/2022. She is 1 month out. She has gastroesophageal reflux disease without Omeprazole. She is off insulin since January 04 over 1 month ago. She denies abdominal pain. She is off her arthritis medications. Her blood sugar glucose at home is under 125. At height of 5 feet 1.5 inches, her ideal body weight is 131 pounds. Her initial weight was 261 pounds, BMI 48.6. She comes in 244 pounds from 250 pounds, 3 weeks ago. She has lost 7 pounds in 3 weeks. Lifetime weight loss of 17 pounds. Percent lifetime excess weight loss of 13 %. Her body mass index is 45.4. She is 113 pounds overweight. PHYSICAL EXAM: VITAL SIGNS: Height 5 foot 1.5 inches, weight 244 pounds. BMI 45.4 Vital Signs Temp 98.1 F 02/16/22 14:59 Pulse 68 02/16/22 14:59 Resp 16 02/16/22 14:59 BP 132/85 02/16/22 14:59 Pulse Ox FiO2 GENERAL: Well-developed in no acute distress. HEENT: No scleral icterus. Extraocular movements grossly intact. Hears conversational speech. No nasal drainage. NECK: Supple without lymphadenopathy. CHEST: Nonlabored respirations with equal bilateral excursions. CARDIOVASCULAR: Regular rate and rhythm. Distal 2+ pulses. ABDOMEN: Incision granulated. No infection. MUSCULOSKELETAL: No clubbing, cyanosis. NEURO: No focal or lateralizing signs. Cranial nerves 2 through 12 grossly within normal limits. PSYCH: Appropriate affect. Alert and oriented to person, place and time. SKIN: Good skin turgor. Well perfused. ASSESSMENT: 1. Morbid obesity due to excess calories 2. Body mass index 50.9 to 45.4 3. Diabetes type 2, insulin dependent 4. Hypertension 5. Atrial fibrillation 6. Osteoarthritis lower back 7. Osteoarthritis knees, bilateral 8. Osteoarthritis ankle, left 9. Hypertriglyceridemia 10. Hypercholesterolemia 11. Vitamin D deficiency 12. Duodenitis 13. Status post sleeve gastrectomy PLAN: 1. Prescription for more Omeprazole. 2. May start multivitamin. 3. Protein intake of 75 grams described. 4. Recommend bariatric labs described. Objective - Vital Signs Vital signs: Vital Signs Temp 98.1 F 02/16/22 14:59 Pulse 68 02/16/22 14:59 Resp 16 02/16/22 14:59 BP 132/85 02/16/22 14:59 Pulse Ox Intake & Output 02/15/22 02/16/22 02/16/22 18:59 06:59 18:59 Weight 110.858 kg - Labs CBC & Chem 7: 02/16/22 16:30 02/16/22 16:30 Assessment/Plan Plan: Date: 02/16/22 Initial Weight: 118.841 kg Initial BMI: 48.6 Current Weight: 110.858 kg Current BMI: 45.4 Type of Surgery: Total Volume in Band: Previous Volume: Volume Removed: Volume Added: Band Size:
[2022-02-16 17:15] LABS: HCT 42.7 % (34.0-46.0); HGB 14.1 gm/dL (11.4-16.0); MCH 29.8 pg (25.0-35.0); MCV 90.3 fL (80.0-100.0); Mean Platelet Volume 7.3; Platelet Count 290 k/uL (150-450); RBC 4.73 m/uL (3.80-5.40); WBC 7.6 k/uL (3.8-10.6)
[2022-02-16 17:21] LABS: INR 0.9 (<1.2); Partial Thromboplastin Time 23.6 sec (22.0-30.0); Prothrombin Time 10.4 sec (9.0-12.0)
[2022-02-16 17:24] LABS: ALT 28 U/L (4-34); AST 31 U/L (14-36); African American GFR (CKD) >90 (>60 ml/min/1.73 sqM); Albumin 4.1 g/dL (3.5-5.0); Alkaline Phosphatase 79 U/L (38-126); Anion Gap 9 mmol/L; Blood Urea Nitrogen 7 mg/dL (7-17); Calcium 8.9 mg/dL (8.4-10.2); Carbon Dioxide 22 mmol/L (22-30); Chloride 108 mmol/L (98-107); Glucose 93 mg/dL (74-99); Magnesium 1.8 mg/dL (1.6-2.3); Non-African American GFR(CKD) 87 (>60 ml/min/1.73 sqM); Phosphorus 4.1 mg/dL (2.5-4.5); Potassium 3.6 mmol/L (3.5-5.1); Sodium 139 mmol/L (137-145); Total Bilirubin 0.7 mg/dL (0.2-1.3); Total Protein 7.1 g/dL (6.3-8.2)
[2022-02-17 03:29] LABS: % Iron Saturation 19.52 (12.00-45.00); Iron 69 ug/dL (50-170); Total Iron Binding Capacity 356 ug/dL (228-460)
[2022-02-17 03:30] LABS: Chol/HDL Ratio 4.35 Ratio; LDL Cholesterol,Calculated 95.1 mg/dL (0.0-131.0); Prealbumin 17.3 mg/dL (18.0-42.0)
[2022-02-17 12:44] LABS: Zinc, Serum 74 ug/dL (60-130)
[2022-02-18 08:13] LABS: Vit B1(Thiamine) 62 ug/L (38-122)
[2022-02-18 12:37] LABS: Vitamin A 45 ug/dL (38-106)
[2022-02-21 08:10] LABS: Selenium 119 mcg/L (63-160)
== END ==
LOC: BARWHC3 14:25
PROVIDERS: ATTEND Surgery Plastic and Reconstructive Surgery
DX: E66.01 Morbid (severe) obesity due to excess calories (principal); D50.8 Other iron deficiency anemias; K91.2 Postsurgical malabsorption, not elsewhere classified; E44.0 Moderate protein-calorie malnutrition; K74.1 Hepatic sclerosis; N19 Unspecified kidney failure; T56.894A Toxic effect of other metals, undetermined, initial encounter; K50.90 Crohn's disease, unspecified, without complications; Z68.42 Body mass index [BMI] 45.0-49.9, adult; E11.9 Type 2 diabetes mellitus without complications; I10 Essential (primary) hypertension; I48.91 Unspecified atrial fibrillation; M47.9 Spondylosis, unspecified; M17.0 Bilateral primary osteoarthritis of knee; M19.072 Primary osteoarthritis, left ankle and foot; E78.1 Pure hyperglyceridemia; E78.00 Pure hypercholesterolemia, unspecified; E55.9 Vitamin D deficiency, unspecified; Z98.84 Bariatric surgery status; K29.80 Duodenitis without bleeding; Z71.3 Dietary counseling and surveillance; Z88.0 Allergy status to penicillin; Z88.1 Allergy status to other antibiotic agents; Z88.5 Allergy status to narcotic agent; Z91.048 Other nonmedicinal substance allergy status
CPT/HCPCS: 84255; 84134; 84425; 80061; 80053; 82607; 82728; 82525; 82746; 83540; 83550; 83735; 84100; 84443; 84590; 84630; 85027; 85610; 85730; 82306; 83970; 83036; 99211; 97803; 96372; J1100

== ENCOUNTER → 2024-01-31 | Outpatient (CLI) | payer BC ==
--- NOTE | 2024-01-31 16:08 | P.BASOAP ---
Subjective Progress Note Date: 01/31/24 No heartburn or reflux. Weight loss. No bread in 2 years. No reflux. Few carbs. Protein is 25 grams. She eats ham. [place] is discussed. She craves cottage cheese. She is on more heart medications. She has panniculitis. Senior Linux Unix Administrator Assessment/Plan Plan: Date: Initial Weight: 118.841 kg Initial BMI: Current Weight: Current BMI: Type of Surgery: Total Volume in Band: Previous Volume: Volume Removed: Volume Added: Band Size:
[2024-01-31 18:26] LABS: INR 0.9 (<1.2); Prothrombin Time 10.3 sec (10.0-12.5)
[2024-01-31 18:27] LABS: Partial Thromboplastin Time 21.9 sec (22.0-30.0)
[2024-02-01 03:25] LABS: ALT 27 U/L (8-44); AST 22 U/L (13-35); Albumin 4.6 g/dL (3.8-4.9); Alkaline Phosphatase 87 U/L (41-126); BUN/Creat Ratio 9.75 Ratio (12.00-20.00); Blood Urea Nitrogen 7.8 mg/dL (9.0-27.0); Calcium 9.7 mg/dL (8.7-10.3); Carbon Dioxide 23.3 mmol/L (21.6-31.8); Chloride 103 mmol/L (96-109); Globulin 2.7 g/dL (1.6-3.3); Glucose 96 mg/dL (70-110); Potassium 4.2 mmol/L (3.5-5.5); Sodium 141 mmol/L (135-145); Total Bilirubin 0.3 mg/dL (0.3-1.2); Total Protein 7.3 g/dL (6.2-8.2)
[2024-02-01 04:11] LABS: HCT 44.7 % (37.2-46.3); HGB 15.3 g/dL (12.0-15.0); MCH 29.6 pg (27.0-32.0); MCHC 34.2 g/dL (32.0-37.0); MCV 86.5 FL (80.0-97.0); Mean Platelet Volume 10.8 FL (9.5-12.2); NRBC Per 100 WBC 0.04 X 10*3/uL (0.00-0.01); Platelet Count 273 X 10*3/uL (140-440); RBC 5.17 X 10*6/uL (4.10-5.20); RDW 12.9 % (11.5-14.5); WBC 9.41 X 10*3/uL (4.50-10.00)
[2024-02-01 15:30] VITALS: BP 151/88; PULSE 76; RESP 16; TEMP 98; BMI 42.3
== END ==
LOC: BARWHC3 13:55
PROVIDERS: ATTEND Surgery Plastic and Reconstructive Surgery
DX: E66.01 Morbid (severe) obesity due to excess calories (principal); Z53.9 Procedure and treatment not carried out, unspecified reason
CPT/HCPCS: 80053; 83036; 85027; 85610; 85730; 99211

== ENCOUNTER → 2024-03-06 | Outpatient (CLI) | payer BC ==
--- NOTE | 2024-03-06 13:28 | P.BASOAP ---
Subjective Progress Note Date: 03/06/24 DATE: 03/06/24 CHIEF COMPLAINT: Morbid obesity HISTORY OF PRESENT ILLNESS: Selma Castro is a 59-year-old female status post sleeve gastrectomy, 01/18/2022. She is 2 years postop. She comes in with recur rent skin infections from panniculitis. She reports lower back pain as result of her pannus. She reports seeing her primary care provider regarding treatment for skin infections including chronic back problems. She was prescribed antifungal creams for over 2 years since 2021. She has lost 3 pounds in 2 months. She is looking into panniculectomy. At height of 5 feet 1.5 inches, her ideal body weight is 131 pounds. She comes in 225 months. Her highest weight is 297 pounds, body mass index 55.3. Her current body mass index is 41.8. Lifetime weight loss of 72 pounds. Lifetime weight loss 43%. She is 97 pounds overweight. PAST MEDICAL HISTORY: 1. Morbid obesity due to excess calories 2. Body mass index of 55.3 3. Diabetes type 2, insulin dependent 4. Hypertension 5. Atrial fibrillation 6. Osteoarthritis lower back 7. Osteoarthritis knees, bilateral 8. Osteoarthritis ankle, left PAST SURGICAL HISTORY: 1. Cholecystectomy 2. Appendectomy 3. Cardiac catheterization 4. Hysterectomy 5. Right lumpectomy 6. Status post sleeve gastrectomy HOME MEDICATIONS: Home Medications Medication Instructions Recorded Confirmed Propranolol HCl [Inderal Xl] 80 mg PO HS 08/18/21 03/07/24 Acetaminophen Tab [Tylenol] 650 mg PO Q6HR PRN 01/26/22 03/07/24 Meloxicam [Mobic] 15 mg PO DAILY PRN 04/27/22 03/07/24 Diltiazem Cd [Cardizem CD] 120 mg PO DAILY 02/02/24 03/07/24 Metoprolol Succinate (ER) [Toprol 25 mg PO DAILY 02/02/24 03/07/24 XL] Cholecalciferol (Vitamin D3) 50 mcg PO DAILY 03/19/24 03/19/24 [Vitamin D3 (50 Mcg = 2000 Iu)] ALLERGIES: Allergies Allergy/AdvReac Type Severity Reaction Status Date / Time cephalexin Allergy Rash/Hives Verified 02/16/22 15:49 codeine Allergy Rash/Hives Verified 02/16/22 15:49 Penicillins Allergy Rash/Hives Verified 02/16/22 15:49 ekg stickers Allergy Unknown red rash Uncoded 02/16/22 15:49 SOCIAL HISTORY: Past tobacco use. FAMILY HISTORY: No family history of ulcerative colitis disease or Crohn's disease. Family history of morbid obesity. No lupus in the family. No reports of stomach or esophageal cancer. REVIEW OF ORGAN SYSTEMS: CONSTITUTIONAL: At height of 5 feet 1.5 inches, her ideal body weight is 131 pounds. Her highest weight is 297 pounds, BMI 55.3 HEENT: Denies any active troubles with vision or hearing. ENDOCRINE: Has diabetes type II, insulin dependent. No hypothyroidism. CARDIOVASCULAR: Past reports of palpitations or heart attacks or chest pain. Has hypertensive heart disease. RESPIRATORY: Denies asthma. Denies chronic obstructive pulmonary disease. GASTROINTESTINAL: Denies any bright red blood per rectum. No diarrhea. No constipation. Has gastroesophageal reflux disease. GENITOURINARY: Denies bladder urgency. No recent blood in urine MUSCULOSKELETAL: Has lower back pain and joint pain. Has osteoarthritis of the knees. H NEURO: No headaches. No seizure disorders. Has neuropathy. PSYCH: No depression. No suicidal ideation. RHEUMATOLOGIC: No lupus. No rheumatoid arthritis. HEMATOLOGIC: Denies any abnormal bleeding or bruising. Past history of blood clot in the heart. SKIN: Has rash. No skin cancer. PHYSICAL EXAM: VITAL SIGNS: Height 5 foot 1.5 inches, weight 225 pounds. BMI 41.8 Vital Signs Temp 98.1 F 03/06/24 14:06 Pulse 60 03/06/24 14:06 Resp 16 03/06/24 14:06 BP 141/77 03/06/24 14:06 Pulse Ox FiO2 GENERAL: Well-developed in no acute distress. HEENT: No scleral icterus. Extraocular movements grossly intact. Hears conversational speech. No nasal drainage. NECK: Supple without lymphadenopathy. CHEST: Nonlabored respirations with equal bilateral excursions. CARDIOVASCULAR: Irregular rate and rhythm. Distal 2+ pulses. ABDOMEN: Has grade 3 panniculitis, over 10 pound pannus. No peritonitis. MUSCULOSKELETAL: No clubbing, cyanosis. NEURO: No focal or lateralizing signs. Cranial nerves 2 through 12 grossly within normal limits. PSYCH: Appropriate affect. Alert and oriented to person, place and time. SKIN: Good skin turgor. Well perfused. ASSESSMENT: 1. Morbid obesity due to excess calories 2. Body mass index of 55.3 to 41.8 3. Osteoarthritis of the knees. 4. Osteoarthritis of the lower back. 5. Hypertensive heart disease. 6. Gastroesophageal reflux disease 7. Hyperlipidemia 8. Obstructive sleep apnea 9. Diabetes type 2, insulin dependent 10. Chronic obstructive pulmonary disease 11. Glaucoma 12. Neuropathy 13. Asthma 14. Atrial fibrillation 15. Status post sleeve gastrectomy 16. Panniculitis PLAN: 1. Recommend panniculectomy for chronic panniculitis with concomittant severe lower back pain and uncontrolled symptoms despite systemic and local treatment including limitation of activities of daily living. Anticipated resection over 10+ pounds described. Panniculectomy should correct her functional deficits. 2. Recommend 2 week protein diet for optimal recovery 3. Risks of bleeding, needs for drains, flap failure, infection, need for further surgery were described. She is high risk for mirella-operative complications with anticipated 10+ skin resection. 4. Inpatient hospitalization also described 5. DVT prophylaxis. 6 Antibiotic prophylaxis 7. Will need correction of all vitamin deficiencies prior to panniculectomy. 8. Strict nicotine avoidance including secondhand exposure perioperative including postoperative described to decrease risk of wound infection and complications. 9. Recommend urine nicotine test prior to surgical intervention 10. Extended recovery more than 6-8 weeks described including placement of drains more than 2 weeks reviewed. Objective - Labs CBC & Chem 7: 03/06/24 13:52 Assessment/Plan Plan: Date: Initial Weight: 118.841 kg Initial BMI: Current Weight: Current BMI: Type of Surgery: Total Volume in Band: Previous Volume: Volume Removed: Volume Added: Band Size:
[2024-03-06 14:18] VITALS: BP 141/77; PULSE 60; RESP 16; TEMP 98.1; BMI 41.8
[2024-03-06 19:52] LABS: % Iron Saturation 23.99 (12.00-45.00); ALT 24 U/L (8-44); AST 20 U/L (13-35); Albumin 4.5 g/dL (3.8-4.9); Albumin/Globulin Ratio 1.61 Ratio (1.60-3.17); Alkaline Phosphatase 85 U/L (41-126); BUN/Creat Ratio 11.25 Ratio (12.00-20.00); Calcium 9.7 mg/dL (8.7-10.3); Carbon Dioxide 24.3 mmol/L (21.6-31.8); Chloride 103 mmol/L (96-109); Globulin 2.8 g/dL (1.6-3.3); Glucose 126 mg/dL (70-110); Iron 89 UG/DL (50-170); LDL Cholesterol,Calculated 106.3 mg/dL (0.0-131.0); Magnesium 1.8 mg/dL (1.5-2.4); Phosphorus 3.9 mg/dL (2.4-5.1); Potassium 4.3 mmol/L (3.5-5.5); Sodium 140 mmol/L (135-145); Total Bilirubin 0.3 mg/dL (0.3-1.2); Total Iron Binding Capacity 371 UG/DL (228-460); Total Protein 7.3 g/dL (6.2-8.2)
[2024-03-06 22:27] LABS: Prealbumin 24.2 mg/dL (18.0-42.0)
[2024-03-07 10:33] LABS: Zinc, Serum 82 ug/dL (60-130)
[2024-03-08 07:01] LABS: Vitamin A 59 ug/dL (38-106)
[2024-03-08 07:15] LABS: Vit B1(Thiamine) 80 ug/L (38-122)
[2024-03-10 07:41] LABS: Selenium 136 mcg/L (63-160)
== END ==
LOC: BARWHC3 13:04
PROVIDERS: ATTEND Surgery Plastic and Reconstructive Surgery
DX: E66.01 Morbid (severe) obesity due to excess calories (principal); K90.89 Other intestinal malabsorption; D50.8 Other iron deficiency anemias; E55.9 Vitamin D deficiency, unspecified; K74.1 Hepatic sclerosis; N19 Unspecified kidney failure; T56.894A Toxic effect of other metals, undetermined, initial encounter; M17.0 Bilateral primary osteoarthritis of knee; M47.816 Spondylosis without myelopathy or radiculopathy, lumbar region; I11.9 Hypertensive heart disease without heart failure; E78.5 Hyperlipidemia, unspecified; G47.33 Obstructive sleep apnea (adult) (pediatric); H40.9 Unspecified glaucoma; H42 Glaucoma in diseases classified elsewhere; E11.40 Type 2 diabetes mellitus with diabetic neuropathy, unspecified; J44.89 Other specified chronic obstructive pulmonary disease; I48.91 Unspecified atrial fibrillation; K21.9 Gastro-esophageal reflux disease without esophagitis; M79.3 Panniculitis, unspecified; Z90.3 Acquired absence of stomach [part of]; Z98.84 Bariatric surgery status; Z79.4 Long term (current) use of insulin; Z88.5 Allergy status to narcotic agent; Z88.1 Allergy status to other antibiotic agents; Z88.0 Allergy status to penicillin; Z88.8 Allergy status to other drugs, medicaments and biological substances; Z79.899 Other long term (current) drug therapy; Z68.41 Body mass index [BMI] 40.0-44.9, adult
CPT/HCPCS: 80053; 80061; 82306; 82525; 82607; 82728; 82746; 83540; 83550; 83735; 83970; 84100; 84134; 84255; 84425; 84443; 84590; 84630; 99211

== ENCOUNTER → 2024-04-24 | Outpatient (CLI) | payer BC ==
[2024-04-24 18:41] LABS: Basophils # (A) 0.03 X 10*3/uL (0.00-0.10); Basophils % (A) 0.4 %; Eosinophils # (A) 0.15 X 10*3/uL (0.04-0.35); Eosinophils % (A) 1.8 %; HCT 43.7 % (37.2-46.3); HGB 13.6 g/dL (12.0-15.0); Lymphocytes # (A) 2.83 X 10*3/uL (0.90-5.00); Lymphocytes % (A) 33.2 %; MCH 28.9 pg (27.0-32.0); MCHC 31.1 g/dL (32.0-37.0); MCV 92.8 FL (80.0-97.0); Mean Platelet Volume 10.3 FL (9.5-12.2); Monocytes # (A) 0.71 X 10*3/uL (0.20-1.00); Monocytes % (A) 8.3 %; NRBC Per 100 WBC 0 X 10*3/uL (0.00-0.01); Neutrophils # (A) 4.77 X 10*3/uL (1.80-7.70); Neutrophils % (A) 55.9 %; Platelet Count 289 X 10*3/uL (140-440); RBC 4.71 X 10*6/uL (4.10-5.20); RDW 12.5 % (11.5-14.5); WBC 8.52 X 10*3/uL (4.50-10.00)
[2024-04-25 03:22] LABS: ALT 29 U/L (8-44); AST 26 U/L (13-35); Albumin 4.3 g/dL (3.8-4.9); Albumin/Globulin Ratio 1.72 Ratio (1.60-3.17); Alkaline Phosphatase 93 U/L (41-126); BUN/Creat Ratio 9.78 Ratio (12.00-20.00); Blood Urea Nitrogen 8.8 mg/dL (9.0-27.0); Calcium 9.4 mg/dL (8.7-10.3); Carbon Dioxide 18.8 mmol/L (21.6-31.8); Chloride 106 mmol/L (96-109); Globulin 2.5 g/dL (1.6-3.3); Glucose 99 mg/dL (70-110); Potassium 4.4 mmol/L (3.5-5.5); Sodium 141 mmol/L (135-145); Total Bilirubin <0.2 mg/dL (0.3-1.2); Total Protein 6.8 g/dL (6.2-8.2)
== END | disposition home or self-care (01) ==
LOC: LABPAT 15:58
PROVIDERS: ATTEND Surgery Plastic and Reconstructive Surgery
DX: Z01.812 Encounter for preprocedural laboratory examination (principal)
CPT/HCPCS: 80053; 85025

== ENCOUNTER 2024-05-06 12:09 | Observation (INO) | payer BC ==
--- NOTE | 2024-04-24 15:44 | P.BASOAP ---
Subjective Progress Note Date: 04/24/24 Getting panniculectomy, plan down to 218 from 229 pounds. 2 week diet describe for optimum wound healing. Assessment/Plan Plan: Date: Initial Weight: 118.841 kg Initial BMI: Current Weight: Current BMI: Type of Surgery: Total Volume in Band: Previous Volume: Volume Removed: Volume Added: Band Size:
--- NOTE | 2024-04-24 15:45 | P.PN ---
Progress Note - Text Progress Note Date: 04/24/24 To whom it may concern: Selma Castro is under my surgical care. She is undergoing surgery May 06, 2024. She will need be off work for at least8 weeks. July 09, 2024. Regards, Louisa Irwin MD FACS
--- NOTE | 2024-05-06 09:04 | P.GSHP ---
History of Present Illness H&P Date: 05/06/24 CHIEF COMPLAINT: Panniculitis HISTORY OF PRESENT ILLNESS: Selma Castro is a 59-year-old female with long standing history of panniculitis for over 2 years. She reports painful skin ulcerations and breakdown along her pannus despite medical treatments and prescriptions. She has been using prescription strength Nystatin powder without improvement. She has tried deoderants including [id number] treatment without improvement. She has pulling sensation along her lower back from her pannus. She has troubles with grooming and hygiene as a result of her pannus. Her pannus interferes with her activities of daily living including dressing, bathing, and hygiene. She presents for panniculectomy. PAST MEDICAL HISTORY: Reviewed PAST SURGICAL HISTORY: Reviewed MEDICATIONS: Reviewed ALLERGIES: Reviewed SOCIAL HISTORY: No current tobacco abuse FAMILY HISTORY: Denies any ulcerative colitis or Crohn's disease. REVIEW OF SYSTEMS: CONSTITUTIONAL: No fevers or chills GASTROINTESTINAL: Gastroesophageal reflux disease improved. No dumping syndrome. RESPIRATORY: Resolved obstructive sleep apnea. No pneumonia. MUSCULOSKELETAL: She has intermittent joint pain, including lower back pain from pannus. HEENT: Denies any troubles with vision or hearing. ENDOCRINE: Prediabetic state resolved. No reports of thyroid disorders. CARDIOVASCULAR: Denies any of recent palpitation or heart attack. Hypertension resolved. PSYCH: History of depression resolved. No anxiety. HEMATOLOGIC: Denies any personal history of venothrombotic event. SKIN: Has panniculitis. No recent skin cancer. PHYSICAL EXAM: VITAL SIGNS: 5 feet 2 inches, 99.79 kg. Body mass index 40.2 ABDOMEN: Soft, nontender. Non-distended. GENERAL: Well-developed, pleasant female in no acute distress. HEENT: No scleral icterus. Extraocular movements grossly intact. Moist buccal mucosa. NECK: Supple. No lymphadenopathy. No JV distention. CHEST: Unlabored respirations, equal bilateral excursions. CARDIOVASCULAR: Regular rate and rhythm. MUSCULOSKELETAL: No clubbing, cyanosis, or edema. NEURO: Moves all extremities. Cranial nerves 2 through 12 grossly intact. PSYCH: Appropriate affect. Alert and oriented to person, place and time. SKIN: Well perfused. Good skin turgor. Pannus over 10 pounds with skin inflammation along the apron over the pubis, 8 cm with redness and panniculitis ASSESSMENT: 1. Morbid obesity due to excess calories. 2. Body mass index 40.2 3. Panniculitis PLAN: 1. Recommend panniculectomy for chronic panniculitis with concomittant severe lower back pain and uncontrolled symptoms despite systemic and local treatment including limitation of activities of daily living. Anticipated resection over 10+ pounds described. Panniculectomy should correct her functional deficits. 2. Recommend 2 week protein diet for optimal recovery 3. Risks of bleeding, needs for drains, flap failure, infection, need for further surgery were described. She is high risk for mirella-operative complications with anticipated 10+ pound skin resection. 4. Inpatient hospitalization also described 5. DVT prophylaxis. 6 Extended recovery more than 6-8 weeks described including placement of drains more than 2 weeks reviewed. Past Medical History Past Medical History: Atrial Fibrillation, Osteoarthritis (OA) Additional Past Medical History / Comment(s): Oct 2020 - blood clot in heart. History of Any Multi-Drug Resistant Organisms: None Reported Past Surgical History: Appendectomy, Bariatric Surgery, Breast Surgery, Cholecystectomy, Heart Catheterization, Hysterectomy Additional Past Surgical History / Comment(s): lump removed from right breast. sleeve 01/17/22 lft hand surgery Past Anesthesia/Blood Transfusion Reactions: Postoperative Nausea & Vomiting (PONV) Additional Past Anesthesia/Blood Transfusion Reaction / Comment(s): ponv x1 in her 20's Smoking Status: Former smoker - Past Family History Mother Family Medical History: No Reported History Medications and Allergies Home Medications Medication Instructions Recorded Confirmed Type Propranolol HCl [Inderal Xl] 80 mg PO HS 08/18/21 05/02/24 History Acetaminophen Tab [Tylenol] 650 mg PO Q6HR PRN 01/26/22 05/02/24 History Meloxicam [Mobic] 15 mg PO DAILY PRN 04/27/22 05/02/24 History Cholecalciferol (Vitamin D3) 50 mcg PO DAILY 03/19/24 05/02/24 History [Vitamin D3 (50 Mcg = 2000 Iu)] Multivitamin [Multivitamins Adult 1 tab PO DAILY 04/24/24 05/02/24 History Gummies] Allergies Allergy/AdvReac Type Severity Reaction Status Date / Time cephalexin Allergy Rash/Hives Verified 05/02/24 13:18 codeine Allergy Rash/Hives Verified 05/02/24 13:18 Penicillins Allergy Rash/Hives Verified 05/02/24 13:18 ekg stickers Allergy Unknown red rash Uncoded 05/02/24 13:18
[~2024-05-06 12:09] MED LIST changes: -DEXAMETHASONE SOD PHOSPHATE 10 MG/ML 1 ML VIAL IM STA; +ONDANSETRON 4 MG/2 ML VIAL IVP PRN
[2024-05-06 12:52] LABS: Glucose,Whole Blood 130 mg/dL (70-110)
[2024-05-06 12:59] LABS: Basophils % (A) 1 %; Eosinophils # (A) 0.2 k/uL (0-0.7); Eosinophils % (A) 2 %; HCT 43.1 % (34.0-46.0); HGB 14.1 gm/dL (11.4-16.0); Lymphocytes # (A) 2.1 k/uL (1.0-4.8); Lymphocytes % (A) 28 %; MCH 29.2 pg (25.0-35.0); MCHC 32.7 g/dL (31.0-37.0); MCV 89.2 fL (80.0-100.0); Mean Platelet Volume 7.3; Monocytes # (A) 0.4 k/uL (0-1.0); Monocytes % (A) 6 %; Neutrophils # (A) 4.6 k/uL (1.3-7.7); Neutrophils % (A) 61 %; Platelet Count 312 k/uL (150-450); RBC 4.83 m/uL (3.80-5.40); RDW 13.2 % (11.5-15.5); WBC 7.6 k/uL (3.8-10.6)
[2024-05-06] MEDS: IV FLUID CONTINUATION 1,000 ML IV ONE (13:00)
[2024-05-06 13:13] LABS: African American GFR (CKD) >90 (>60 ml/min/1.73 sqM); Blood Urea Nitrogen 13 mg/dL (7-17); Calcium 9.2 mg/dL (8.4-10.2); Carbon Dioxide 17 mmol/L (22-30); Non-African American GFR(CKD) >90 (>60 ml/min/1.73 sqM)
[2024-05-06] MEDS: ACETAMINOPHEN TAB 500 MG TAB PO PRN (13:15)
[2024-05-06] MEDS: ONDANSETRON 4 MG/2 ML VIAL IVP ONE (13:16)
[2024-05-06] MEDS: DEXAMETHASONE SOD PHOSPHATE 4 MG/ML 1 ML VIAL IV ONE (13:16)
[2024-05-06] MEDS: SCOPOLAMINE 1 MG/72 HR PATCH TRANSDERM STA (13:24)
[2024-05-06 13:45] LABS: ALT 34 U/L (4-34); AST 57 U/L (14-36); Albumin 4.8 g/dL (3.5-5.0); Alkaline Phosphatase 60 U/L (38-126); Chloride 110 mmol/L (98-107); Glucose 117 mg/dL (74-99); Sodium 138 mmol/L (137-145); Total Bilirubin 1.5 mg/dL (0.2-1.3); Total Protein 7.8 g/dL (6.3-8.2)
[2024-05-06] MEDS: MIDAZOLAM 2 MG/2 ML VIAL IVP ONE (13:45)
[2024-05-06 13:46] LABS: Anion Gap 11 mmol/L
[2024-05-06 13:48] LABS: Potassium 6.2 mmol/L (3.5-5.1)
--- NOTE | 2024-05-06 14:00 | P.ANPRN ---
Procedure Note - Anesthesia - Nerve Block Performed Bilateral Erector Spinae Single Time Out Performed: Yes Date of Procedure: 05/06/24 Procedure Start Time: 13:44 Procedure Stop Time: 13:50 Location of Patient: PreOp Indication: Acute Post-Operative Pain, Analgesia, Requested by Surgeon Sedation Type: Sedate with meaningful contact maintained Preparation: Sterile Prep, Sterile Dressing Position: Prone Catheter: None Needle Types: Pajunk Needle Gauge: 21 Ultrasound used to visualize needle placement: Yes Ultrasound used to observe medication spread: Yes Injectate: 0.5% Ropivacaine (see comment for volume) ([id number]----ficd side) Blood Aspirated: No Pain Paresthesia on Injection Noted: No Resistance on Injection: Normal Image Stored and Saved: Yes Events: Uneventful and Well Tolerated
[2024-05-06] MEDS: HEPARIN SODIUM,PORCINE 5,000 UNIT/ML 1 ML VIAL SQ PRN (14:18)
[2024-05-06 14:31] LABS: African American GFR (CKD) >90 (>60 ml/min/1.73 sqM); Anion Gap 6 mmol/L; Blood Urea Nitrogen 12 mg/dL (7-17); Carbon Dioxide 23 mmol/L (22-30); Chloride 110 mmol/L (98-107); Glucose 101 mg/dL (74-99); Non-African American GFR(CKD) >90 (>60 ml/min/1.73 sqM); Potassium 4.1 mmol/L (3.5-5.1); Sodium 139 mmol/L (137-145)
[2024-05-06] MEDS ORDERED: MIDAZOLAM 2 MG/2 ML VIAL ONE (15:29)
[2024-05-06] MEDS ORDERED: DEXAMETHASONE SOD PHOSPHATE 4 MG/ML 1 ML VIAL ONE (15:29)
[2024-05-06] MEDS ORDERED: ROPIVACAINE 5 MG/ML 30 ML VIAL ONE (15:29)
[2024-05-06] MEDS ORDERED: ROCURONIUM 10 MG/ML (5 ML VIAL) IV ONE (15:29)
[2024-05-06] MEDS ORDERED: SUCCINYLCHOLINE CHLORIDE 200 MG/10 ML VIAL IV ONE (15:29)
[2024-05-06] MEDS ORDERED: NEOSTIGMINE 1 MG/ML 10 ML VIAL ONE (15:29)
[2024-05-06] MEDS ORDERED: PROPOFOL 10 MG/ML 20 ML VIAL IV ONE (15:29)
[2024-05-06] MEDS ORDERED: fentaNYL (PF) 50 MCG/ML 2 ML AMP ONE (15:29)
[2024-05-06] MEDS ORDERED: GLYCOPYRROLATE 0.2 MG/ML 2 ML VIAL ONE (15:29)
[2024-05-06] MEDS ORDERED: LIDOCAINE 1% INJ 10MG/ML (20 ML MDV) ONE (15:29)
[2024-05-06] MEDS ORDERED: HYDROmorphone (PF) 1 MG/ML ONE (15:29)
[2024-05-06] MEDS: LACTATED RINGERS 1,000 ML IV ONE (16:44)
[2024-05-06] MEDS ORDERED: TRIMETHOBENZAMIDE 100 MG/ML 2 ML VIAL IM PRN (18:42)
[2024-05-06] MEDS ORDERED: NALOXONE 0.4 MG/ML 1 ML VIAL IV PRN (18:44)
--- NOTE | 2024-05-06 18:50 | P.OP ---
Date of Procedure: 05/06/24 Description of Procedure: SURGEON: KERRIE SHELDON MD PREOPERATIVE DIAGNOSES: 1. Chronic panniculitis recalcitrant to medical therapy 2. Adiposis panniculus 3. Morbid obesity due to excess calories, Body mass index 41.2 4. Status post sleeve gastrectomy 5. Hypertensive heart disease 6. Paroxysmal atrial fibrillation 7. Postop nausea vomiting POSTOPERATIVE DIAGNOSES: 1. Chronic panniculitis recalcitrant to medical therapy 2. Adiposis panniculus 3. Morbid obesity due to excess calories, Body mass index 41.2 4. Status post sleeve gastrectomy 5. Hypertensive heart disease 6. Paroxysmal atrial fibrillation 7. Postop nausea vomiting OPERATION: 1. Panniculectomy, 10.92 pounds. ANESTHESIA: General ESTIMATED BLOOD LOSS: 200 mL SPECIMENS REMOVED: Pannus 10.92 pounds. COMPLICATIONS: None. CONDITION: Stable. DRAINS: Two #19 Brody-Jon drains below abdominal flap extending through the pubis. OPERATIVE FINDINGS: 1. Pannus weighing 10.92 pounds, excised. INDICATIONS: Selma Castro is a 59-year-old female with long standing history of panniculitis for over 2 years. She reports painful skin ulcerations and breakdown along her pannus despite medical treatments and prescriptions.She presents for panniculectomy. Benefits and risks of the procedure including bleeding, infection, cosmetic deformity, abdominal seromas, placement of drains, risk of flap failure were described at length. Informed consent was obtained. DESCRIPTION: In the preanesthesia care unit the patient was marked with an indelible marker and was given lovenox subcutaneously. The patient was brought into the operating room and laid in supine position. After general induction, a Jeffrey catheter was placed. The abdomen was then prepped and draped in standard sterile fashion using ChloraPrep. The skin was prepped as far laterally to the back, inferiorly to the upper thighs and superiorly to above the chest. A timeout protocol was confirmed with the surgical team regarding patient's name, procedure to be performed, including preoperative medications. She had received Ancef IV antibiotics. Once the time-out protocol was confirmed with the surgical team, the patient was re-marked with indelible marker whereby the midline of the xiphoid to the mons pubis was marked. The anterior/superior iliac spine along the bilateral hips was also marked. At 8 cm above the pubis commissure a transverse incision was made for the inferior portion of the flap. Using a #10 blade, the incision was taken from the midline laterally to above the anterior/superior iliac spine, initially on the left side of the patient and then on the right side of the patient. Electro-Bovie cautery was used to control for hemostasis. The dissection was taken down to the level of the fascia. Landmarks used were the xiphoid process as well as the bilateral costal margins for the superior margin. Care was taken to avoid any creation of dog ears during the dissection. During this dissection, the umbilicus was truncated at its fascial insertion. Hemostasis was checked with electro-Bovie cautery and all defects were addressed. Attention was now brought to closure of the flap. Using stainless steel skin ely, the midline was once again marked of the upper flap as well as the pubic commissure. The patient was placed in a flexed position of approximately 30 degrees at the hips. The pannus was extended inferiorly to the feet. The upper flap was created once the excess skin was excised. Care was taken to avoid any dog ears along the lateral aspect of the incisions. Once excised, the pannus was weighed at 10.92 pounds. The upper and lower flaps were reapproximated at the midline and then laterally to the skin with skin ely. Once reapproximated, the skin was closed in layers using 0 Vicryl for the superficial fascial system followed by running 3-0 Monocryl for the deep dermis in a running subcuticular fashion. Prior to skin closure, two round #19 Brody-Jon drains were placed underneath the flap and brought out just inferior to the incision along the pubis. Drain stitch using 2-0 nylon was placed. Once the incision was closed, bulb suction was attached. Hemostasis was checked. At the end of the procedure, the needle, sponge and instrument count was verified correct. The skin was cleansed with hydrogen peroxide. Dermabond tape including adhesive was placed along the length of the incision. Optifoam dressing was also placed over the incision and over the KATHIE sites. The patient was then transferred to a hospital bed in a beach chair position. An abdominal binder was placed and marked. The patient was taken to the postanesthesia care unit in stable condition, awake and extubated.
[2024-05-06] MEDS: fentaNYL (PF) 50 MCG/ML 2 ML AMP IV PRN (19:55)
[2024-05-06] MEDS: LACTATED RINGERS 1,000 ML IV SCH (21:32)
[2024-05-06] MEDS: SODIUM CHLORIDE 0.9% 1,000 ML IV ONE (21:46)
[2024-05-06] MEDS: fentaNYL PCA 500 MCG/50 ML BAG IV SCH (21:47)
[2024-05-06] MEDS: PROPRANOLOL LA 80 MG CAP.SA.24H PO SCH (22:09)
[2024-05-07] MEDS: ONDANSETRON 4 MG/2 ML VIAL IVP PRN (00:03)
[2024-05-07] MEDS: ACETAMINOPHEN TAB 500 MG TAB PO SCH (00:03)
[2024-05-07] MEDS: DEXAMETHASONE SOD PHOSPHATE 4 MG/ML 1 ML VIAL IVP SCH (00:03)
[2024-05-07] MEDS: D5-0.45% NACL WITH KCL 20MEQ/L 1,000 ML IV SCH (00:06)
[2024-05-07] MEDS: METOCLOPRAMIDE 5 MG/ML 2 ML VIAL IVP PRN (05:51)
--- NOTE | 2024-05-07 15:59 | P.PN ---
Subjective Progress Note Date: 05/07/24 CHIEF COMPLAINT: Panniculitis HISTORY OF PRESENT ILLNESS: Patient is postop day #1 status post panniculectomy. Patient does report abdominal pain. She did have nausea earlier today no vomiting. She has had flatus. She is afebrile. Potassium 6.2 down to 4.1 hgb 14.1 PHYSICAL EXAM: VITAL SIGNS: Reviewed GENERAL: Well-developed in no acute distress. HEENT: No sclera icterus. Extraocular movements grossly intact. Moist buccal mucosa. Head is atraumatic, normocephalic. Hears conversational speech. No nasal drainage. NECK: Supple without lymphadenopathy. CHEST: Non-labored respirations and equal bilateral excursions. CARDIOVASCULAR: Palpable 2+ radial pulses. ABDOMEN: Soft. Nondistended. KATHIE drains sanguinous output MUSCULOSKELETAL: No clubbing or cyanosis. NEUROLOGIC: No focal or lateralizing signs. Cranial nerves II through XII grossly intact. PSYCH: Appropriate affect. Alert and oriented to person, place and time. SKIN: Well perfused. Good skin turgor. ASSESSMENT: 1. Chronic panniculitis recalcitrant to medical therapy 2. Adiposis panniculus 3. Morbid obesity due to excess calories, Body mass index 41.2 4. Status post sleeve gastrectomy 5. Hypertensive heart disease 6. Paroxysmal atrial fibrillation 7. Postop nausea vomiting PLAN: -Continue regular diet with no straws or carbonated beverages -Continue pain management -Encourage patient to ambulate -Encourage patient to use incentive spirometer -Continue antiemetics -continue IV fluids -Continue to monitor KATHIE drain output -Anticipate discharge tomorrow Physician Mangle Roll Operator note has been reviewed by physician. Signing provider agrees with the documented findings, assessment, and plan of care. As above. Please see additional documentation below Patient is status post panniculectomy with 11 pound resection of the pannus. Output from KATHIE reasonable. Patient has been hypotensive systolic blood pressure less than 100. She is on propranolol. With hypotension and extensive surgery, will discontinue propranolol. Continue hospitalization due to persistent hypotension. Fluid bolus 2 L advised. Reassessment for disposition home in 24 hours. Objective - Vital Signs Vital signs: Vital Signs Temp 97.3 F L 05/07/24 13:53 Pulse 57 L 05/07/24 13:53 Resp 17 05/07/24 13:53 BP 97/65 05/07/24 13:53 Pulse Ox 95 05/07/24 13:53 FiO2 Intake & Output 05/06/24 05/07/24 05/07/24 18:59 06:59 18:59 Intake Total 2049 Output Total 400 330 920 Balance 1650 -330 -920 Weight 102.1 kg 102.1 kg Intake: IV 2049 Output: Drainage 30 120 Left Anterior Abdomen 20 70 Right Anterior Abdomen 10 50 Urine 200 300 800 Uretheral (Jeffrey) 800 Estimated Blood Loss 200 Other: Voiding Method Indwelling Catheter - Labs CBC & Chem 7: 05/06/24 12:50 05/06/24 14:14
[2024-05-07] MEDS: PANTOPRAZOLE 40 MG/10 ML VIAL IVP SCH (21:52)
[2024-05-07] MEDS: SODIUM CHLORIDE 0.9% 2,000 ML IV ONE (23:49)
[2024-05-08 01:52] VITALS: TEMP 97.6
[2024-05-08 07:19] VITALS: BP 117/73; PULSE 53; RESP 17
--- NOTE | 2024-05-08 13:14 | P.DS ---
Providers Date of admission: 05/06/24 18:25 Expected date of discharge: 05/08/24 Attending physician: Louisa Irwin Consults: 05/06/24 09:05 Consult Physician Routine Consulting Provider: [facility] Consult Reason/Comments: Regional block Do you want consulting provider notified?: Yes Primary care physician: Francisco Javier Mccollum Hospital Course: POSTOPERATIVE DIAGNOSES: 1. Chronic panniculitis recalcitrant to medical therapy 2. Adiposis panniculus 3. Morbid obesity due to excess calories, Body mass index 41.2 4. Status post sleeve gastrectomy 5. Hypertensive heart disease 6. Paroxysmal atrial fibrillation 7. Postop nausea vomiting COURSE: Selma Castro is a 59-year-old female with long standing history of panniculitis for over 2 years. She reports painful skin ulcerations and breakdown along her pannus despite medical treatments and prescriptions.She presents for panniculectomy. She underwent panniculectomy with excision of 11 pounds. Postoperatively, patient was managed for hypotension. She was given IV fluid boluses. Overall pain was well-controlled. Prior to discharge, discharge instructions including KATHIE drain management and wound management were described. Patient advised to follow-up with the bariatric center weekly. High-protein intake diet of 75 to 90 g daily advised. Preventing DVT including retroflexion and dorsiflexion of the ankle advised daily. Patient was stable for discharge. Procedures: OPERATION: 1. Panniculectomy, 10.92 pounds. ANESTHESIA: General ESTIMATED BLOOD LOSS: 200 mL SPECIMENS REMOVED: Pannus 10.92 pounds. COMPLICATIONS: None. CONDITION: Stable. DRAINS: Two #19 Brody-Jon drains below abdominal flap extending through the pubis. OPERATIVE FINDINGS: 1. Pannus weighing 10.92 pounds, excised. Patient Condition at Discharge: Stable Plan - Discharge Summary Discharge Rx Participant: No New Discharge Prescriptions: New Acetaminophen Tab [Tylenol Tab] 1,000 mg PO Q6HR PRN #30 tablet PRN Reason: Pain Continue Meloxicam [Mobic] 15 mg PO DAILY PRN PRN Reason: Pain Cholecalciferol (Vitamin D3) [Vitamin D3 (50 Mcg = 2000 Iu)] 50 mcg PO DAILY Multivitamin [Multivitamins Adult Gummies] 1 tab PO DAILY Discontinued Acetaminophen Tab [Tylenol] 650 mg PO Q6HR PRN PRN Reason: Pain Propranolol HCl [Inderal Xl] 80 mg PO HS Discharge Medication List Meloxicam [Mobic] 15 mg PO DAILY PRN 04/27/22 [History] Cholecalciferol (Vitamin D3) [Vitamin D3 (50 Mcg = 2000 Iu)] 50 mcg PO DAILY 03/19/24 [History] Multivitamin [Multivitamins Adult Gummies] 1 tab PO DAILY 04/24/24 [History] Acetaminophen Tab [Tylenol Tab] 1,000 mg PO Q6HR PRN #30 tablet 05/08/24 [Rx] [facility]Ref[place] [facility] [place] [place] [facility] [place] [facility]10[facility] 9:00 am Patient Instructions/Handouts: *Surgery [facility] - Scopalamine Patch Instructions, Panniculectomy (GEN) Discharge Disposition: HOME SELF-CARE
== END 2024-05-08 13:37 | disposition home or self-care (01) ==
LOC: OR 12:09 → 4SSUR 18:25
PROVIDERS: ADMIT Surgery Plastic and Reconstructive Surgery; ATTEND Surgery Plastic and Reconstructive Surgery
DX: M79.3 Panniculitis, unspecified (principal); E66.01 Morbid (severe) obesity due to excess calories; I11.9 Hypertensive heart disease without heart failure; I48.0 Paroxysmal atrial fibrillation; Z68.41 Body mass index [BMI] 40.0-44.9, adult; M19.90 Unspecified osteoarthritis, unspecified site; I95.81 Postprocedural hypotension; K91.89 Other postprocedural complications and disorders of digestive system; R11.2 Nausea with vomiting, unspecified; Z79.1 Long term (current) use of non-steroidal anti-inflammatories (NSAID); Z79.899 Other long term (current) drug therapy; Z88.0 Allergy status to penicillin; Z88.5 Allergy status to narcotic agent; Z88.1 Allergy status to other antibiotic agents; Z91.048 Other nonmedicinal substance allergy status; Z87.891 Personal history of nicotine dependence; Z98.84 Bariatric surgery status; Z90.49 Acquired absence of other specified parts of digestive tract; Z98.890 Other specified postprocedural states
CPT/HCPCS: 15830; 15847; 64999; 80053; 80048; 85025; G0378 ×2; J2250; J0330; J1644; J1100 ×3; J2710; J2765; J0690 ×2; J2405 ×2; J2001; J3010 ×4; J1170; J2795; J2704; J1596; J2470 ×2

== ENCOUNTER → 2025-05-14 | Outpatient (CLI) | payer BC ==
--- NOTE | 2025-05-14 13:41 | P.BASOAP ---
Subjective Progress Note Date: 05/14/25 In past 13 years, had bsg 500+ was diabetic in past. She reports 3 years fighting infection in ears. She is seeing ENT. She felt great. She is maintaining weight. Checked January 6.2% in remission. She deleted hermy fitness pal. Asked to restart with weight loss. Will get blood work. Feel good. Has occasional reflux and difficulty swallowing. Has dysphagia. Recommend EGD and epigastric pain. She had a panniculectomy.Weight 215 to 214 pounds from 1 year. Highest 292 pounds. Her Hgb A1c up to 10%. Assessment/Plan Plan: Date: Initial Weight: 118.841 kg Initial BMI: Current Weight: Current BMI: Type of Surgery: Total Volume in Band: Previous Volume: Volume Removed: Volume Added: Band Size:
[2025-05-14 14:02] VITALS: BP 154/84; PULSE 69; RESP 16; TEMP 97
[2025-05-14 15:28] LABS: INR 0.9 (<1.2); Partial Thromboplastin Time 24.2 sec (22.0-30.0); Prothrombin Time 10.6 sec (10.0-12.5)
[2025-05-14 19:40] LABS: HCT 41.9 % (37.2-46.3); HGB 14.1 g/dL (12.0-15.0); MCH 29.0 pg (27.0-32.0); MCHC 33.7 g/dL (32.0-37.0); MCV 86.2 FL (80.0-97.0); NRBC Per 100 WBC 0 X 10*3/uL (0.00-0.01); Platelet Count 276 X 10*3/uL (140-440); RBC 4.86 X 10*6/uL (4.10-5.20); RDW 12.8 % (11.5-14.5); WBC 8.42 X 10*3/uL (4.50-10.00)
[2025-05-14 20:10] LABS: ALT 25 U/L (8-44); AST 29 U/L (13-35); Albumin 4.2 g/dL (3.8-4.9); Albumin/Globulin Ratio 2.00 Ratio (1.60-3.17); Alkaline Phosphatase 88 U/L (41-126); Anion Gap 15.00 mmol/L (4.00-12.00); BUN/Creat Ratio 13.33 Ratio (12.00-20.00); Blood Urea Nitrogen 12.0 mg/dL (9.0-27.0); Calcium 9.0 mg/dL (8.7-10.3); Carbon Dioxide 21.0 mmol/L (21.6-31.8); Chloride 104 mmol/L (96-109); Cholesterol 122.00 mg/dL (0.00-200.00); Ferritin 102.0 ng/mL (10.0-291.0); Globulin 2.1 g/dL (1.6-3.3); Glucose 205 mg/dL (70-110); HDL Cholesterol 55.50 mg/dL (40.00-60.00); Iron 78 UG/DL (50-170); LDL Cholesterol,Calculated 35.3 mg/dL (0.0-131.0); Magnesium 1.7 mg/dL (1.5-2.4); Potassium 4.4 mmol/L (3.5-5.5); Sodium 140 mmol/L (135-145); Total Iron Binding Capacity 361 UG/DL (228-460); Total Protein 6.3 g/dL (6.2-8.2); Triglycerides 156.00 mg/dL (0.00-149.00); VLDL Calculation 31.20 mg/dL (5.00-40.00); Vitamin B12 645.0 pg/mL (200.0-944.0)
[2025-05-14 22:07] LABS: Prealbumin 21.1 mg/dL (18.0-42.0)
[2025-05-15 10:26] LABS: Zinc, Serum 67 ug/dL (60-130)
== END ==
LOC: BARWHC3 13:06
PROVIDERS: ATTEND Surgery Plastic and Reconstructive Surgery
DX: E66.01 Morbid (severe) obesity due to excess calories (principal); E89.1 Postprocedural hypoinsulinemia; Z88.0 Allergy status to penicillin; F17.200 Nicotine dependence, unspecified, uncomplicated; Z88.1 Allergy status to other antibiotic agents; D50.8 Other iron deficiency anemias; K91.2 Postsurgical malabsorption, not elsewhere classified; E44.0 Moderate protein-calorie malnutrition; E45 Retarded development following protein-calorie malnutrition; E55.9 Vitamin D deficiency, unspecified; K74.1 Hepatic sclerosis; N19 Unspecified kidney failure; T56.894A Toxic effect of other metals, undetermined, initial encounter; K50.90 Crohn's disease, unspecified, without complications; Z68.39 Body mass index [BMI] 39.0-39.9, adult
CPT/HCPCS: 80053; 80061; 82306; 82525; 82607; 82728; 82746; 83540; 83550; 83735; 83970; 84100; 84134; 84255; 84425; 84443; 84590; 84630; 85027; 85610; 85730; 99211

== ENCOUNTER 2025-05-26 05:55 | Day surgery (SDC) | payer BC ==
[2025-05-26 06:50] VITALS: TEMP 96.6
[2025-05-26 06:59] LABS: Glucose,Whole Blood 180 mg/dL (70-110)
[2025-05-26] MEDS: LACTATED RINGERS 1,000 ML IV SCH (06:59)
[2025-05-26] MEDS: IV FLUID CONTINUATION 1,000 ML IV ONE (06:59)
[2025-05-26] MEDS ORDERED: PROPOFOL 10 MG/ML 20 ML VIAL IV ONE (07:30)
[2025-05-26] MEDS ORDERED: MIDAZOLAM 2 MG/2 ML VIAL ONE (07:30)
[2025-05-26] MEDS ORDERED: LIDOCAINE 1% INJ 10MG/ML (20 ML MDV) ONE (07:30)
[2025-05-26] MEDS ORDERED: fentaNYL (PF) 50 MCG/ML 2 ML AMP ONE (07:30)
--- NOTE | 2025-05-26 07:37 | P.GSHP ---
History of Present Illness H&P Date: 05/26/25 CHIEF COMPLAINT: GERD and dysphagia HISTORY OF PRESENT ILLNESS: The patient is a 60-year-old female who presents reports gastroesophageal reflux disease and dysphagia. Upper endoscopy was offered for further evaluation and management. PAST MEDICAL HISTORY: Please see list. PAST SURGICAL HISTORY: Please see list. MEDICATIONS: Please see list. ALLERGIES: Please see list. SOCIAL HISTORY: No illicit drug use FAMILY HISTORY: No reports of Crohn disease or ulcerative colitis. REVIEW OF ORGAN SYSTEMS: CONSTITUTIONAL: No reports of fevers or chills. GI: Denies any blood in stools or constipation. PHYSICAL EXAM: VITAL SIGNS: Stable GENERAL: Well-developed and pleasant in no acute distress. HEENT: No scleral icterus. Extraocular movements grossly intact. Moist buccal mucosa. NECK: Supple without lymphadenopathy. CHEST: Unlabored respirations. Equal bilateral excursions. CARDIOVASCULAR: Regular rate and rhythm. Distal 2+ pulses. ABDOMEN: Soft, nondistended. MUSCULOSKELETAL: No clubbing, cyanosis, or edema. ASSESSMENT: 1. Gastroesophageal reflux disease 2. Dysphagia PLAN: 1. Recommend proceeding with an upper endoscopy Past Medical History Past Medical History: Atrial Fibrillation, Diabetes Mellitus, Hyperlipidemia, Osteoarthritis (OA) Additional Past Medical History / Comment(s): Oct 2020 - blood clot in heart. pt currently has one ear canal swollen closed,hearing is muffled at this time., History of Any Multi-Drug Resistant Organisms: None Reported Past Surgical History: Appendectomy, Bariatric Surgery, Breast Surgery, Cholecystectomy, Heart Catheterization, Hysterectomy, Orthopedic Surgery Additional Past Surgical History / Comment(s): lump removed from right breast. sleeve 01/17/22 lft hand surgery. Panniculectomy 05-06-24 hand surgery x2 Past Anesthesia/Blood Transfusion Reactions: Postoperative Nausea & Vomiting (PONV) Additional Past Anesthesia/Blood Transfusion Reaction / Comment(s): ponv x1 in her 20's, woke during scope in [place] Smoking Status: Former smoker - Past Family History Mother Family Medical History: No Reported History Medications and Allergies Home Medications Medication Instructions Recorded Confirmed Type Cholecalciferol (Vitamin D3) 50 mcg PO DAILY 03/19/24 05/26/25 History [Vitamin D3 (50 Mcg = 2000 Iu)] Multivitamin [Multivitamins Adult 1 tab PO DAILY 04/24/24 05/26/25 History Gummies] Acetaminophen Tab [Tylenol Tab] 1,000 mg PO Q6HR PRN #30 tablet 05/08/24 05/23/25 Rx Propranolol HCl [Propranolol HCl 1 capsule PO HS 05/15/24 05/26/25 History ER] Insulin Aspart [NovoLOG] 1 unit INJ ACHS PRN 05/14/25 05/26/25 History Insulin Glargine,Hum.rec.anlog 24 unit INJ HS 05/14/25 05/26/25 History [Lantus Solostar Pen] Rosuvastatin [Crestor] 1 tab PO HS 05/14/25 05/26/25 History estradioL [estradioL (Once Weekly) 1 patch TRANSDERM DIRECTED 05/14/25 05/26/25 History 0.025 mg Patch] Allergies Allergy/AdvReac Type Severity Reaction Status Date / Time cephalexin Allergy Severe Anaphylaxis Verified 05/26/25 06:43 codeine Allergy Rash/Hives Verified 05/26/25 06:43 Penicillins Allergy Rash/Hives Verified 05/26/25 06:43 ekg stickers Allergy Unknown red rash Uncoded 05/26/25 06:43 Surgical - Exam Vital Signs Temp Pulse Resp BP Pulse Ox 96.6 F L 64 18 131/108 98 05/26/25 06:48 05/26/25 06:48 05/26/25 06:48 05/26/25 06:48 05/26/25 06:48 Results - Labs Abnormal Lab Results - Last 24 Hours (Table) 05/26/25 Range/Units 06:57 POC Glucose (mg/dL) 180 H (70-110) mg/dL
--- NOTE | 2025-05-26 08:05 | P.PCN ---
Date of Procedure: 05/26/25 Description of Procedure: PREOPERATIVE DIAGNOSIS: Dysphagia. POSTOPERATIVE DIAGNOSIS: Dysphagia. Upper esophageal stenosis OPERATION: Esophagogastroduodenoscopy rigid Bahamian dilator 54 Fr, upper esophageal sphincter. SURGEON: Louias Irwin MD ANESTHESIA: MAC. INDICATIONS: The patient is a 60-year-old female who presents with dysphagia. She reports troubles with swallowing pills along her upper throat. Upper endoscopy was offered for further diagnostic evaluation and treatment. DESCRIPTION: The patient was brought into the endoscopy suite and laid in the left lateral decubitus position. An Olympus gastroscope was carefully passed along the posterior oropharynx. Upon entry into the proximal esophagus, a stricture was identified consistent with upper esophageal stenosis. No erosion were found along the distal esophagus or ulcerations. The stomach was entered. The scope was passed to the second portion and third portion of the duodenum was unremarkable. Presence of sleeve gastrectomy was confirmed. A guidewire was placed through the scope into the stomach. The scope was r emoved. A 54-Tanzanian rigid dilator was placed to 45 cm from the incisors. The dilator was left in place between 2-3 minutes. The dilator and guidewire were removed. The scope was reentered along the proximal esophagus whereby the stricture had resolved of the upper esophagus. No full-thickness mucosal tear was found with exception of bleeding to 30 cm from the incisors. No full-thickness injury was found along the mucosa. The stomach was desufflated. The patient tolerated the procedure well. FINDINGS: Squamocolumnar junction 35 cm from the incisors. Diaphragmatic hiatus at 35 cm. Hill grade 1 lower esophageal valve. LA grade A erosive esophagitis. Upper esophageal stenosis dilated to 54 Tanz[place] RECOMMENDATIONS: Omeprazole 40 mg daily for 2 weeks Ciprofloxacin 500 mg suspension twice daily for 2 weeks Upper endoscopy as needed Avoid foods with sharp edges for 2 Plan - Discharge Summary Discharge Rx Participant: No New Discharge Prescriptions: New Ciprofloxacin [Cipro Susp] 5 ml PO BID 10 Days #100 ml Continue Acetaminophen Tab [Tylenol] 1,000 mg PO Q6HR PRN #30 tablet PRN Reason: Pain estradioL [estradioL (Once Weekly) 0.025 mg Patch] 1 patch TRANSDERM DIRECTED Propranolol HCl [Propranolol HCl ER] 1 capsule PO HS Insulin Aspart [NovoLOG] 1 unit INJ ACHS PRN PRN Reason: hyperglycemia Insulin Glargine,Hum.rec.anlog [Lantus Solostar Pen] 24 unit INJ HS Discontinued Cholecalciferol (Vitamin D3) [Vitamin D3 (50 Mcg = 2000 Iu)] 50 mcg PO DAILY Multivitamin [Multivitamins Adult Gummies] 1 tab PO DAILY Rosuvastatin [Crestor] 1 tab PO HS Discharge Medication List Acetaminophen Tab [Tylenol] 1,000 mg PO Q6HR PRN #30 tablet 05/08/24 [Rx] Propranolol HCl [Propranolol HCl ER] 1 capsule PO HS 05/15/24 [History] Insulin Aspart [NovoLOG] 1 unit INJ ACHS PRN 05/14/25 [History] Insulin Glargine,Hum.rec.anlog [Lantus Solostar Pen] 24 unit INJ HS 05/14/25 [History] estradioL [estradioL (Once Weekly) 0.025 mg Patch] 1 patch TRANSDERM DIRECTED 05/14/25 [History] Ciprofloxacin [Cipro Susp] 5 ml PO BID 10 Days #100 ml 05/26/25 [Rx] [facility]ment[facility] [place] [facility] Patient Instructions/Handouts: Esophageal Dilation (DC) Activity/Diet/Wound Care/Special Instructions: Salt water gargle twice daily for 5 days. Take antibiotic as scheduled twice daily for 10 days. Crushed medications only. Avoid all sharp edges. Avoid cut medications for 10 days, 06/05/2025 Discharge Disposition: HOME SELF-CARE
[2025-05-26] MEDS ORDERED: HYDROmorphone 1 MG/ML 1 ML SYRINGE IVP STA (08:44)
--- NOTE | 2025-05-26 08:45 | P.PN ---
Progress Note - Text Progress Note Date: 05/26/25 Reviewed with her findings of upper endoscopy including esophageal stenosis and dilation. Salt water gargle reinforced including avoiding swallowing: Pills and sharp edges as well as acidic foods. Patient is allergic to amoxicillin, ciprofloxacin prescribed. For pain, Dilaudid and IV Tylenol prescribed
[2025-05-26] MEDS: ACETAMINOPHEN IV (For NPO) 1,000 MG in EMPTY BAG 1 BAG IVPB STA (08:51)
[2025-05-26 09:18] VITALS: BP 147/87; PULSE 57; RESP 15
== END 2025-05-26 10:45 | disposition home or self-care (01) ==
LOC: ORWHC2ENDO 05:55
PROVIDERS: ATTEND Surgery Plastic and Reconstructive Surgery
DX: K22.2 Esophageal obstruction (principal); K21.9 Gastro-esophageal reflux disease without esophagitis; I48.91 Unspecified atrial fibrillation; E11.9 Type 2 diabetes mellitus without complications; E78.5 Hyperlipidemia, unspecified; Z87.891 Personal history of nicotine dependence; Z79.4 Long term (current) use of insulin; Z88.0 Allergy status to penicillin
CPT/HCPCS: 43248; J2250; J2003; J3010; J0131; J2704